=== PATIENT | male | born 1940 | race African-American/Black ===

== ENCOUNTER → 2017-08-23 | Outpatient (CLI) | payer OTHER ==
[~2017-08-23] VITALS: Ht 167.6 cm; Wt 61.2 kg
[~2017-08-23] MED LIST: AMLODIPINE-ATO1 EAC6 PO; ASPIR 8181 MG PO; BYSTOLIC10 MG PO; CYCLOBENZAPRINE5 MG PO; FLOMAX0.4 MG PO; GLUCOPHAGE XR500 MG PO; LOSARTAN-HCTZ1 EAC2 PO; MOBIC15 MG PO; NEURONTIN100 MG PO; NORCO 10-325 T1 EACH PO; SYNTHROID100 MC1 PO; SYNTHROID125 MC1 PO; VIAGRA100 MG PO; VITAMIN B COMP1 EACH PO; VITAMIN B-12500 MCG PO; ZETIA10 MG PO
--- NOTE | ~2017-08-23 | HPC ---
[facility] [place] [address] PAIN MANAGEMENT CONSULTATION Name: BEVERLEY HORNER Room #: [facility] [id number] Admission: 08/23/17 Attend Phys: Uriel Leo MD Discharge: Date of : 42 Report #: [id number] THIS REPORT FOR: //name// CC: Isacc Sanchez MD [facility] Uriel Leo DATE OF SERVICE: 09/13/2017 DATE OF REGISTRATION: 09/13/2017. Followup visit for low back pain with radiculopathy. The patient returns to pain clinic today for further discussion regarding management of his back pain related to grade 1 anterolisthesis. He was seen in consultation 1 month ago. He received an epidural injection with only short term benefit. We have talked about repeating the injection, possibly at a different level. He has an X-Stop type device at L4-L5 and degenerative disk disease noted at several levels with scoliosis. We may consider another injection and I have told him that the use of a transforaminal approach might be more effective. I would consider bilateral transforaminal at the level of his spondylolisthesis if we repeat the injection in the future. For the moment, he would like to consider medication management. I have offered gabapentin 100 mg t.i.d. Side effects reviewed. PQRS reviewed shows history of spondylosis and osteoarthritis of the spine. BMI of 22.4. He remains fit. Blood pressure is elevated and followed by his primary care physician. PHYSICAL EXAMINATION: Blood pressure today is 167/67, heart rate 70, O2 sat 97. Pain intensity is just a 4/10 today. He is not a fall risk. He is not on an opioid agreement nor is he receiving opioids from our clinic. He does not smoke nor drink alcohol. IMPRESSION: Low back pain with radiculopathy. He has a spinal stenosis based upon the X-Stop placement and spondylolisthesis documented by MRI at L4-L5. PLAN: 1. Trial of gabapentin for 1-2 months. 2. Consider return for transforaminal epidural injection at L4-L5 under fluoroscopic guidance. <ELECTRONICALLY SIGNED> By: Uriel Leo MD 10/04/17 1408 1152 1222 Uriel Leo MD /nt
--- NOTE | ~2017-08-23 | HPC ---
[facility] [place] [address] PAIN MANAGEMENT CONSULTATION Name: BEVERLEY HORNER Room #: REG [facility] [id number] Admission: 08/23/17 Attend Phys: Uriel Leo MD Discharge: Date of : 42 Report #: [id number] THIS REPORT FOR: //name// CC: PJ Leo DATE OF SERVICE: 08/23/2017 CHIEF COMPLAINT: Burning pain in the posterior thigh. HISTORY OF PRESENT ILLNESS: The patient is a pleasant 77-year-old whom Dr. Sanchez has asked to see us. He describes a burning pain that radiates down the back of his thigh. It is worse with any sort of tactile pressure. He describes it as a burning sensation. He has had some physical therapy with no relief. He has had no injections. He has not tried gabapentin, Lyrica, or amitriptyline neuropathic pain mediations. Pain today is 4/10 and he described it as continuous. Pain drawing shows it bilaterally down the posterior aspect of each leg. MEDICATIONS: Bystolic, losartan, hydrocodone 10/325 one q. 6 hours, meloxicam 15 mg daily, levothyroxine, Zetia, Viagra as needed, vitamin B12, vitamin B6, aspirin, amlodipine/atorvastatin. He uses only 1 hydrocodone a day currently. He says it does help with his pain. He denies any side effects other than some mild constipation, which is managed. REVIEW OF SYSTEMS: He completes the review of systems. Multiple question file shows only issues associated with frequent urination, nocturia, change in force and his urine stream and sexual difficulties. He denies all other symptoms. Impacted pain score is completed, it is very low 21/70. PAST SURGICAL HISTORY: Back surgery in 11/2014, I believe this was an X-STOP device per x-rays reviewed later in the clinic visit. He has a history of diabetes, treated with metformin, hypertension and coronary artery disease. SOCIAL HISTORY: He is retired. 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 He has been off work for 15 years. He denies use of any tobacco, but drinks alcoholic beverages once a week in a social setting. Substance abuse review shows that he has a history of substance abuse with alcohol for a total of 3, considered low risk for the use of opioid medication. PHYSICAL EXAMINATION: GENERAL: This is a very nice fellow, moves easily from sitting to standing [facility] [address] [place] [address] PAIN MANAGEMENT CONSULTATION Name: BEVERLEY HORNER Room #: REG [facility]ITAL[facility]Yuli#: [id number] Admission: 08/23/17 Attend Phys: Uriel Leo MD Discharge: Date of : 42 Report #: [id number] position, walks with some difficulty and antalgic features. His gait is stiff. HEENT: His blood pressure is 181/75, heart rate is 55. CHEST: Clear to auscultation. CARDIAC: Rhythm was regular. ABDOMEN: Soft. MUSCULOSKELETAL: Examination of spine reveals small scar from previous surgery. Straight leg raising bilaterally reproduces pain in the L5-S1 distribution. Sensation is intact. There is mild generalized weakness in the lower extremities. IMPRESSION: Low back pain with radiculopathy, L5-S1 distribution bilateral. RECOMMENDATIONS: Epidural steroid injection under fluoroscopic guidance. This should be helpful for these radicular symptoms. Further x-ray examination may be of some value. Risks and procedure were explained. He would like to proceed. He was taken to fluoroscopic suite for treatment. He was placed prone, skin prepped with ChloraPrep. Skin anesthetized over the L4-L5 interspace. A 20-gauge Tuohy epidural needle was advanced on the first attempt in the epidural space with loss of resistance technique. There was no blood nor CSF aspirated. 1 mL of Omnipaque injected. Good spread of dye was seen into the epidural space followed by 3 mL of 0.5% lidocaine mixed with 80 mg of triamcinolone. He tolerated the procedure well, was observed for 45 minutes and discharged. Follow up as needed. <ELECTRONICALLY SIGNED> By: Uriel Leo MD 10/04/17 1408 1700 2104 Uriel Leo MD /nt
[2017-08-23 12:45] VITALS: BP 167/82
== END ==
LOC: PAIN 07:38
DX: M54.16 Radiculopathy, lumbar region (principal)

== ENCOUNTER → 2017-09-13 | Outpatient (CLI) | payer OTHER ==
[~2017-09-13] VITALS: Ht 167.6 cm; Wt 63.0 kg
[~2017-09-13] MED LIST changes: -CYCLOBENZAPRINE5 MG PO; -SYNTHROID100 MC1 PO
[2017-09-13 14:55] VITALS: BP 167/76
== END ==
LOC: PAIN 07:25
DX: I10 Essential (primary) hypertension (principal); M54.89 Other dorsalgia; F11.90 Opioid use, unspecified, uncomplicated; Z79.899 Other long term (current) drug therapy

== ENCOUNTER → 2018-01-20 | Outpatient (CLI) | payer OTHER ==
[~2018-01-20] VITALS: Ht 167.6 cm; Wt 62.9 kg
--- NOTE | ~2018-01-20 | HPC ---
[facility] [place] [address] PAIN MANAGEMENT CONSULTATION Name: BEVERLEY HORNER Room #: REG [facility] Ranjeet#: [id number] Admission: 01/20/18 Attend Phys: Uriel Leo MD Discharge: Date of : 42 Report #: [id number] THIS REPORT FOR: //name// CC: Isacc Leo DATE OF SERVICE: 01/20/2018 Followup visit for chronic radiculopathy. The patient returns to pain clinic today in followup. He received an epidural injection above the level of his X-Stop device. He has spinal stenosis at L4-L5, fairly severe in nature. Unfortunately, that epidural provided no relief. I am not sure another epidural would provide relief, but before we proceed with more aggressive treatments including spinal cord stimulation or surgery, I have offered him bilateral transforaminal epidural injections. There is a complete loss of disk space at L4-L5 and marked endplate changes and irregularities. There is severe spinal stenosis there and severe bilateral neuroforaminal stenosis. At L5-S1, the disk space height is reduced, but there appears to be more room for entry with bilateral neuroforaminal narrowing to a lesser degree, although still there is some significant compromise. An injection at L5-S1 would typically spread medicine superiorly on the pedicle and may provide better relief in and around the area where the stenosis is severe at 4-5. He has agreed to proceed with that injection. If he is not doing any better, we will see him back in the pain clinic and I would like to discuss spinal cord stimulation with him at that time. PHYSICAL EXAMINATION: He is a pleasant gentleman. Blood pressure 179/80, heart rate 65, respirations 16. He is able to ambulate without difficulty. He has some restriction in back extension; this may be from the device placed in his spine. Flexion is performed without difficulty. Straight leg raise bilaterally positive following an L4-L5 distribution, L5-S1 also involved. IMPRESSION: Lumbar radiculopathy secondary to severe spinal stenosis at L4-L5 and multilevel foraminal stenosis. RECOMMENDATIONS: Bilateral transforaminal epidural injection L5-S1 under fluoroscopic guidance. PROCEDURE: He was taken to the fluoroscopic suite, placed prone, skin prepped with ChloraPrep. Skin was anesthetized over the L5-S1 neural foramen. I began on the left and needle was gently advanced into the neural foramen. Repositioning was required until I obtained a nice epidurogram as well as medications spreading along the L5 nerve root. This was then followed by 2 mL of 0.5% bupivacaine mixed with 40 mg of triamcinolone. The needle was removed. [address] [address] PAIN MANAGEMENT CONSULTATION Name: BEVERLEY HORNER Room #: REG CLTila Pollack#: [id number] Admission: 01/20/18 Attend Phys: Uriel Leo MD Discharge: Date of : 42 Report #: [id number] The C-arm was then positioned to the right and a mirror image injection at the L5-S1 neural foramen was performed using triplanar fluoroscopic views. He tolerated the procedure well and was taken to recovery room for observation for 45 minutes. His pain score was zero at discharge. Followup visit is planned in 1 month. By: 1700 2123 Uriel Leo MD /nt
[2018-01-20 10:36] VITALS: BP 137/65
== END | disposition home or self-care (01) ==
LOC: PAIN 06:16
DX: M48.061 Spinal stenosis, lumbar region without neurogenic claudication (principal); M54.16 Radiculopathy, lumbar region; G89.29 Other chronic pain; Z98.890 Other specified postprocedural states; Z87.891 Personal history of nicotine dependence; Z79.82 Long term (current) use of aspirin; Z79.899 Other long term (current) drug therapy

== ENCOUNTER 2018-04-30 22:04 | Inpatient (IN) | payer OTHER ==
[~2018-04-30] VITALS: Ht 177.8 cm; Wt 63.5 kg
--- NOTE | ~2018-04-30 | EKG ---
[address] [address] ELECTROCARDIOGRAM REPORT Name: BEVERLEY HORNER Room #: 453-P ADM IN M.R.#: [id number] Admission: 05/01/18 Attend Phys: Jayson Fontanez Discharge: Date of : 42 Report #: [id number] THIS REPORT FOR: //name// [facility] ED Test Date: 2018-04-30 Test Time: 23:26:47 Pat Name: BEVERLEY HORNER Department: Room: [facility] Gender: M Master Glazier: eagle : 1940 Requested By: Jaime Pena Order Number: [id number] MD: Doug Raines Measurements Intervals [place] Rate: 69 P: 83 DC: 198 QRS: 80 QRSD: 84 T: 89 QT: 388 QTc: 416 Interpretive Statements Sinus rhythm Early repolarization Compared to ECG 09/21/2001 21:33:30 No significant change Electronically Signed On 05-01-2018 10:23:34 RESEARCH ATTORNEY by Doug Raines [email or web address] <ELECTRONICALLY SIGNED> By: Doug Raines MD 05/01/18 1023 2326 2326 Doug Raines MD /JUANA
[2018-04-30 22:10] VITALS: BP 128/67
[2018-04-30 22:51] LABS: URINE BILIRUBIN NEGATIVE (Negative); URINE BLOOD NEGATIVE (Negative); URINE CLARITY CLEAR; URINE COLOR YELLOW; URINE GLUCOSE-RANDOM* NEGATIVE (Negative); URINE KETONES TRACE (Negative); URINE LEUKOCYTES-REFLEX NEGATIVE (Negative); URINE NITRITE-REFLEX NEGATIVE (Negative); URINE PROTEIN (DIPSTICK) NEGATIVE (Negative); URINE UROBILINOGEN 0.2 E.U./dl (0.2-1.0)
[2018-04-30 23:18] LABS: ABSOLUTE NEUTROPHILS 6.1 thou/uL (1.4-8.2); BASOPHILS 1.2 % (0.0-2.0); HEMATOCRIT 45.1 % (42.0-52.0); HEMOGLOBIN 15.6 gm/dL (14.0-18.0); LYMPHOCYTES 18.9 % (24.0-44.0); MCH 32.2 pg (26.0-34.0); MCHC 34.5 g/dL (28.0-37.0); MCV 93.3 fL (80.0-100.0); MONOCYTES 10.7 % (1.0-8.0); PLATELET COUNT 267 thou/uL (150-400); POLYS 66.2 % (36.0-66.0); RBC 4.83 mil/uL (4.50-6.00); RDW 14.8 % (10.5-14.5); WBC 9.2 thou/uL (4.0-11.0)
[2018-04-30 23:27] LABS: ANION GAP 9 mmol/L (7-16); BUN 28 mg/dL (7-18); CHLORIDE 103 mmol/L (98-107); CO2 29 mmol/L (21-32); CREATININE 1.3 mg/dL (0.7-1.3); GLUCOSE 96 mg/dL (74-106); POTASSIUM 4.3 mmol/L (3.5-5.1); SODIUM 141 mmol/L (136-145)
[2018-04-30 23:36] LABS: TROPONIN-I <0.06 ng/mL (<0.06)
[2018-05-01 01:11] VITALS: BP 136/73
[2018-05-01] MEDS ORDERED: SYNTHROID100 MC1 PO (01:32)
[2018-05-01] MEDS ORDERED: FLOMAX0.4 MG PO (01:33)
[2018-05-01 01:46] VITALS: BP 132/69
[2018-05-01 03:17] VITALS: BP 133/49
[2018-05-01 07:20] VITALS: BP 134/69
[2018-05-01 15:34] VITALS: BP 119/58
[2018-05-01 20:21] VITALS: BP 120/59
[2018-05-02 00:05] LABS: GLYCOHEMOGLOBIN (HGB A1C) 6.1 % (4.8-5.6)
[2018-05-02 04:35] VITALS: BP 126/67
[2018-05-02 08:00] VITALS: BP 127/61
[2018-05-02 15:00] VITALS: BP 130/66
[2018-05-02 19:58] VITALS: BP 114/52
[2018-05-03 04:38] VITALS: BP 115/44
[2018-05-03 06:30] LABS: MAGNESIUM 2.4 mg/dL (1.8-2.4); PHOSPHORUS 3.7 mg/dL (2.5-4.9)
[2018-05-03 07:30] LABS: FOLIC ACID 4.8 ng/mL (8.6-58.9)
[2018-05-03 07:38] VITALS: BP 115/44
[2018-05-03 08:00] VITALS: BP 114/55
[2018-05-03 14:00] VITALS: BP 132/58
[2018-05-03 19:50] VITALS: BP 120/63
[2018-05-04 04:06] VITALS: BP 116/60
[2018-05-04 08:53] VITALS: BP 132/59
[2018-05-04] MEDS ORDERED: CYCLOBENZAPRINE5 MG PO (09:59)
[2018-05-04 16:01] VITALS: BP 120/61
[2018-05-04 19:35] VITALS: BP 122/50
[2018-05-05 04:10] VITALS: BP 131/67
[2018-05-05 07:59] VITALS: BP 125/56
[2018-05-05 08:25] VITALS: BP 125/56
== END 2018-05-05 15:24 | DRG 552 ==
LOC: ER 22:04 → 4W 05-01 01:24 → EROBS 05-01 01:24 → 4W 05-01 01:32
PROVIDERS: Emergency Medicine; Nurse Practitioner Acute Care; Nurse Practitioner Family
DX: M47.26 Other spondylosis with radiculopathy, lumbar region (principal); M48.061 Spinal stenosis, lumbar region without neurogenic claudication; I10 Essential (primary) hypertension; E03.9 Hypothyroidism, unspecified; E11.9 Type 2 diabetes mellitus without complications; J44.9 Chronic obstructive pulmonary disease, unspecified; M19.90 Unspecified osteoarthritis, unspecified site; R29.6 Repeated falls; E53.8 Deficiency of other specified B group vitamins; R63.4 Abnormal weight loss; E78.00 Pure hypercholesterolemia, unspecified; N40.1 Benign prostatic hyperplasia with lower urinary tract symptoms; Z87.891 Personal history of nicotine dependence; Z79.82 Long term (current) use of aspirin; Z79.899 Other long term (current) drug therapy; Z68.20 Body mass index [BMI] 20.0-20.9, adult; W18.39XA Other fall on same level, initial encounter; Y93.89 Activity, other specified; Y92.89 Other specified places as the place of occurrence of the external cause; Y99.8 Other external cause status
CPT/HCPCS: 10040

== ENCOUNTER 2018-05-09 02:26 | Inpatient (IN) | payer OTHER ==
[~2018-05-09] VITALS: Ht 167.6 cm; Wt 68.3 kg
[2018-05-09] VITALS (36 sets, daily range): BP systolic 94–146; BP diastolic 16–76
--- NOTE | ~2018-05-09 | EKG ---
[address] [place] [address] ELECTROCARDIOGRAM REPORT Name: NEVILLEBEVERLEY DICK Room #: 238-P ADM IN M.R.#: [id number] Admission: 05/09/18 Attend Phys: Nallely Morris MD Discharge: Date of : 42 Report #: [id number] THIS REPORT FOR: //name// [facility] ED Test Date: 2018-05-09 Test Time: 03:29:51 Pat Name: BEVERLEY HORNER Department: Room: 238 Gender: M Clinical Trials Specialist: meaghan : 1940 Requested By: Yeimy Winters Order Number: [id number] MD: Donte Patel Measurements Intervals [place] Rate: 108 P: 81 [place]: 164 QRS: 39 QRSD: 85 T: 90 QT: 320 QTc: 429 Interpretive Statements Sinus tachycardia Borderline low voltage, extremity leads Probable left ventricular hypertrophy Nonspecific T abnormalities, lateral leads Compared to ECG 04/30/2018 23:26:47 No significant change was found Electronically Signed On 05-09-2018 8:12:25 REPAIR SUPERVISOR by Donte Patel [email or web address] <ELECTRONICALLY SIGNED> By: Donte Patel MD, [facility] 05/09/18811 Donte Patel MD, [facility] /EPI
--- NOTE | ~2018-05-09 | P ---
[facility] [place] [address] PROCEDURE REPORT Name: BEVERLEY HORNER Room #: 238-P [facility] IN M.R.#: [id number] Admission: 05/09/18 Attend Phys: Nallely Morris MD Discharge: Date of : 42 Report #: [id number] THIS REPORT FOR: //name// CC: Isacc Morris DATE OF SERVICE: 05/14/2018 BRIEF HISTORY: The patient is a 77-year-old male who presented to [facility] with shortness of breath and was found to have bilateral pulmonary emboli, was placed on heparin drip. He now has evidence of upper gastrointestinal bleeding. PREOPERATIVE DIAGNOSIS: Upper gastrointestinal bleeding on heparin drip. POSTOPERATIVE DIAGNOSES: Circumferential mass lesion of the GE junction consistent with esophageal cancer with partial esophageal obstruction. MEDICATIONS: Intubation and general anesthesia. SPECIMEN: Biopsies of esophageal mass. ESTIMATED BLOOD LOSS: 3 mL related to procedure. PROCEDURE: EGD with biopsy. FINDINGS: Prior to intubation and sedation, procedure of endoscopy was discussed with the patient as well as family potential risks and its complications were discussed. They indicate they understand and desire that we proceed. DESCRIPTION OF PROCEDURE: With the patient in supine position, the Olympus video endoscope was inserted in the cervical esophagus under direct vision without difficulty. There was a small amount of blood in the mid esophagus. We advanced the scope, there was a mass lesion seen at the GE junction. It was circumferential. It was friable. There was not spurting or profuse bleeding, but there was diffuse friability. Very carefully, I was able to advance the scope through the strictured segment into the stomach. Stomach was examined on end view as well as retroflexed views. Not surprisingly, there was a pool of red blood in the cardia of the stomach seen in retroflexion. There were some limitations due to blood and clot, but I do not see any obvious mass lesions within the gastric lumen. Examination of distal stomach revealed it to be coated with blood and without ulcers. The pylorus, duodenal bulb and postbulbar sweep were inspected and noted to be unremarkable. At that point, the scope was slowly withdrawn and careful circumferential views were obtained. We did obtain [facility] [address] [place] [address] PROCEDURE REPORT Name: BEVERLEY HORNER Dara Room #: 238-P [facility] IN ..#: [id number] Admission: 05/09/18 Attend Phys: Nallely Morris MD Discharge: Date of : 42 Report #: [id number] biopsies of the mass lesion. Scope was withdrawn. A 16-Latvian nasogastric tube was reinserted. This was observed endoscopically and it passed easily through the strictured segment into the stomach. Scope was withdrawn. The patient tolerated the procedure well. DISPOSITION: Discussed with Dr. Jenkins. Difficult problem the patient with bilateral pulmonary emboli and oozing from an esophageal tumor. This is likely a cancer. We will resume the heparin drip this evening. We will await biopsies. It is noted that on the CT angio, there was thickening in the esophagus, but no other abnormalities to suggest metastatic disease was identified. <ELECTRONICALLY SIGNED> By: Marcell Rabago MD 05/15/18 1316 164 1928 Marcell Rabago MD /nt
--- NOTE | ~2018-05-09 | 2DMMODE ---
[facility] [place] [address] 2 D/M-MODE ECHOCARDIOGRAM Name: BEVERLEY OHRNER Dara Room #: 241-P [facility] IN ..#: [id number] Admission: 05/09/18 Attend Phys: Nallely Morris MD Discharge: Date of : 42 Date of Service: 05/22/18 1344 Report #: [id number] THIS REPORT FOR: //name// APPROVED REPORT Study performed: 05/22/2018 10:36:01 EXAM: Comprehensive 2D, Doppler, and color-flow Echocardiogram Patient Location: ICU Room #: 241 Status: routine BSA: 1.80 HR: 105 bpm BP: 96/45 mmHg Other Information Study Quality: Adequate Indications Non STEMI 2D Dimensions IVSd: 10.68 (7-11mm) LVDd: 45.37 mm PWd: 11.31 (7-11mm) LVDs: 31.74 (25-40mm) Aortic Root: 29.64 mm IVC: 1.90 mm Tricuspid Valve TR Peak Aguilar.: 2.27 m/s RAP Estimate: 3.00 mmHg TR Peak Gr.: 20.57 mmHg PA Pressure: 24.00 mmHg Left Ventricle The left ventricle is normal size. Borderline concentric left ventricular hypertrophy. The left ventricular systolic function is normal. The left ventricular ejection fraction is within the normal range. LVEF is 50-55%. Right Ventricle The right ventricle is normal size. The right ventricular systolic function is normal. Atria The left atrium size is normal. The right atrium size is [facility] [address] [place] [address] 2 D/M-MODE ECHOCARDIOGRAM Name: NEVILLEBEVERLEY DICK Room #: 241-P [facility] IN ..#: [id number] Admission: 05/09/18 Attend Phys: Nallely Morris MD Discharge: Date of : 42 Date of Service: 05/22/18 1344 Report #: [id number] normal. Pericardium There is a small pericardial effusion. <Conclusion> The left ventricle is normal size. LVEF is 50-55%. The right ventricle is normal size. The right ventricular systolic function is normal. There is a small pericardial effusion. <ELECTRONICALLY SIGNED> By: Rony Singh MD 05/22/18 1344 1344 43 Rony Singh MD /INF
--- NOTE | ~2018-05-09 | 2DMMODE ---
[facility] [place] [address] 2 D/M-MODE ECHOCARDIOGRAM Name: BEVERLEY HORNER Room #: 238-P [facility] IN ..#: [id number] Admission: 05/09/18 Attend Phys: Nallely Morris MD Discharge: Date of : 44 Date of Service: 05/09/18 1418 Report #: [id number] THIS REPORT FOR: //name// APPROVED REPORT Study performed: 05/09/2018 13:21:26 EXAM: Comprehensive 2D, Doppler, and color-flow Echocardiogram Patient Location: ICU Room #: 238 Status: routine BSA: 1.75 HR: 87 bpm BP: 94/37 mmHg Rhythm: NSR Other Information Study Quality: Fair Indications Pulmonary Embolism Diabetes Dyspnea Hypertension/HDD 2D Dimensions IVSd: 11.43 (7-11mm) LVOT Diam: 21.49 (18-24mm) LVDd: 41.00 mm PWd: 10.55 (7-11mm) Ascending Ao: 30.05 (22-36mm) LVDs: 28.14 (25-40mm) Aortic Root: 24.09 mm IVC: 17.00 mm Aortic Valve AoV Peak Aguilar.: 1.17 m/s AO Peak Gr.: 5.52 mmHg LVOT Max P.83 mmHg LVOT Max V: 0.98 m/s ELENO Vmax: 3.02 cm2 Mitral Valve E/A Ratio: 1.1 MV Decel. Time: 169.22 ms MV E Max Aguilar.: 0.61 m/s MV A Aguilar.: 0.58 m/s MV PHT: 49.08 ms IVRT: 96.89 ms [facility] [address] [place] [address] 2 D/M-MODE ECHOCARDIOGRAM Name: BEVERLEY HORNER Dara Room #: 238-P [facility]#: [id number] Admission: 05/09/18 Attend Phys: Nallely Morris MD Discharge: Date of : 42 Date of Service: 05/09/18 1418 Report #: [id number] Pulmonary Valve PV Peak Aguilar.: 1.03 m/s PV Peak Gr.: 4.27 mmHg Pulmonary Vein P Vein S: 0.57 m/s P Vein A: 0.31 m/s P Vein D: 0.37 m/s P Vein A Dur.: 92.3 msec P Vein S/D Ratio: 1.54 Tricuspid Valve TR Peak Aguilar.: 2.83 m/s TR Peak Gr.: 32.14 mmHg PA Pressure: 37.00 mmHg Left Ventricle The left ventricle is normal size. There is normal left ventricular wall thickness. Left ventricular systolic function is hyperdynamic. LVEF is >70%. Grade I - abnormal relaxation pattern. Right Ventricle The right ventricle is normal size. The right ventricular systolic function is normal. Atria The left atrium size is normal. The right atrium size is normal. Aortic Valve The aortic valve is normal in structure. No aortic regurgitation is present. There is no aortic valvular stenosis. Mitral Valve The mitral valve is normal in structure. There is no mitral valve regurgitation noted. No evidence of mitral valve stenosis. Tricuspid Valve The tricuspid valve is normal in structure. There is trace tricuspid regurgitation. Estimated PAP 37 mmHg. There is mild pulmonary hypertension. Pulmonic Valve The pulmonary valve is normal in structure. Trace pulmonic regurgitation. Great Vessels The aortic root is normal in size. IVC is normal in size and [facility] [address] [place] [address] 2 D/M-MODE ECHOCARDIOGRAM Name: EBVERLEY HORNER Dara Room #: 238-P [facility] IN ..#: [id number] Admission: 05/09/18 Attend Phys: Nallely Morris MD Discharge: Date of : 42 Date of Service: 05/09/18 1418 Report #: [id number] collapses >50% with inspiration. Pericardium There is no pericardial effusion. <Conclusion> The left ventricle is normal size. There is normal left ventricular wall thickness. Left ventricular systolic function is hyperdynamic. Grade I - abnormal relaxation pattern. The right ventricle is normal size. The left atrium size is normal. The aortic valve is normal in structure. There is no mitral valve regurgitation noted. There is trace tricuspid regurgitation. Estimated PAP 37 mmHg. <ELECTRONICALLY SIGNED> By: Doug Raines MD 05/09/18 1418 17 17 Doug Raines MD /INF
--- NOTE | ~2018-05-09 | O ---
[facility] [place] [address] [place] [address] OPERATIVE REPORT Name: BEVERLEY HORNER Room #: 241-P [facility] IN M.R.#: [id number] Admission: 05/09/18 Attend Phys: Nallely Morris MD Discharge: Date of : 42 Report #: [id number] THIS REPORT FOR: //name// CC: Isacc Morris DATE OF SERVICE: 05/31/2018 SURGEON: Michael Melgar MD [employer] OPERATOR: Pankaj Nelson DO PREOPERATIVE DIAGNOSES: 1. Respiratory failure with inability to wean from the mechanical ventilator. 2. Bilateral pulmonary emboli. 3. Retroperitoneal hematoma. POSTOPERATIVE DIAGNOSES: 1. Respiratory failure with inability to wean from the mechanical ventilator. 2. Bilateral pulmonary emboli. 3. Retroperitoneal hematoma. PROCEDURE: Tracheostomy (size 8 Shiley cuffed nonfenestrated). ANESTHESIA: General endotracheal anesthesia and local anesthetic. ESTIMATED BLOOD LOSS: 5 mL. SPECIMEN: None. COMPLICATIONS: None appreciated. INDICATIONS FOR PROCEDURE: This is a 77-year-old male patient who was seen in the [place] ER with shortness of air, nausea, vomiting, constipation. CT of the chest, abdomen and pelvis revealed bilateral pulmonary emboli. The patient developed respiratory failure with anticoagulation, developed retroperitoneal hematoma as well as a GI bleed. His anticoagulation was held after an IVC filter was placed. The patient has required mechanical ventilation for over 10 days and has been unable to be weaned. He presents now for tracheostomy. DESCRIPTION OF PROCEDURE IN DETAIL: After the risks, benefits, and expectations of the operation were discussed in detail with the patient and his , informed consent was obtained. The patient was identified in the intensive Care Unit. He was then taken to the Operating Room and he was placed in the supine position. SCDs were placed on the patient's bilateral lower extremities and [facility] [address] [place] [address] OPERATIVE REPORT Name: BEVERLEY HORNER Room #: 241-P [facility] IN [facility]#: [id number] Admission: 05/09/18 Attend Phys: Nallely Morris MD Discharge: Date of : 42 Report #: [id number] pneumatic compression was initiated. The patient was then given general anesthesia through his already existing endotracheal tube. His neck was prepped and draped in the standard sterile fashion. A time-out was performed to identify the correct patient and procedure. Local anesthetic was infiltrated into the skin and subcutaneous tissue in the lower neck one fingerbreadth above the sternal notch. A small transverse incision was made with a #15 blade scalpel. Dissection was carried through the subcutaneous tissue down to and through the platysma muscle. The strap muscles were then divided in the midline. Dissection was carried down to the trachea. The cricothyroid membrane was palpable and dissection was then carried down to the second tracheal ring. After appropriate retraction and ensuring hemostasis with electrocautery, the size 8 Shiley-cuffed nonfenestrated tracheostomy was chosen. The cuff was then tested on the backtable and the tracheostomy then lubricated. The second tracheal ring was scored both above and below the ring with electrocautery. The FiO2 has been decreased down to 30%. The cuff was then deflated and the trachea was incised above and below the second tracheal ring with a #11 blade scalpel. The second tracheal ring was then divided anteriorly and the anterior section of the tracheal ring was excised. Tracheostomy head charrer was then placed. The endotracheal tube was slowly withdrawn above the tracheotomy. The tracheostomy tube was then placed within the trachea. The obturator was removed and the inner cannula was placed. The cuff was inflated. The circuit was then connected to the tracheostomy and end tidal CO2 was obtained. There was no evidence for cuff leak. Surgicel was placed around the tracheostomy. The wings of the tracheostomy were then secured to the skin with interrupted 2-0 nylon sutures on the inferior aspect of each wing. The foam trach strap was then connected. The patient tolerated the procedure well. He was returned to the Intensive Care Unit in stable condition with no apparent intraoperative complications. <ELECTRONICALLY SIGNED> By: Michael Melgar MD, FACS 05/31/18 1219 1109 1153 Michael Melgar MD, FACS /nt
--- NOTE | ~2018-05-09 | EKG ---
[address] [address] ELECTROCARDIOGRAM REPORT Name: BEVERLEY HORNER Room #: 241-P ADM IN M.R.#: [id number] Admission: 05/09/18 Attend Phys: Nallely Morris MD Discharge: Date of : 42 Report #: [id number] THIS REPORT FOR: //name// 

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
--- NOTE | ~2018-05-09 | PATH ---
[facility] [address] [address] PATHOLOGY RPT PROCEDURE Name: GRAEME HORNER Dara Room #: 238-P ADM IN M.R.#: [id number] Admission: 05/09/18 Date of : 42 Discharge: Report #: [id number] Path Case #: [id number] [facility] Accession Number: [id number] . 01 Material submitted: . BX OF ESOPHAGEAL MASS . 01 Clinician provided ICD-10: D64.9 K92.2 . 01 Clinical history: . Pre-op diagnosis: Anemia, GI bleed Post-op diagnosis: Esophageal mass . 02 Diagnosis: Tissue designated as "esophageal mass", endoscopic biopsy: - Specimen entirely comprised of fibrinopurulent material and fragments with degeneration. - Rare detached glandular epithelial cells present with no evidence of intestinal metaplasia or dysplasia. - Intact mucosal fragments not present. (IUV:eldon; 05/17/2018) MBR/05/17/2018 . 02 Comment: Examination shows fragments entirely comprised of fibrinopurulent material, marked acute inflammation, as well as fibrinoid degeneration, compatible with an exudate. Intact epithelial or mucosal fragments are not present within this sample. Detached glandular epithelial cells are identified and show no atypical or malignant features. Due to the lack of intact mucosa, no additional stains are performed. History of "esophageal mass" is noted. Please correlate clinically. (IUV:manager of creative services; 05/17/2018) . 02 Electronically signed: . Fabiola Ramirez MD, Pathologist NPI- [id number] . 01 Gross description: . The specimen is received in formalin, labeled "Graeme Horner, biopsy of esophageal mass". Received are four segments of light brown soft tissue ranging in size from 0.3 to 0.5 cm in maximum dimensions. The specimen is submitted entirely in cassette A1. (CAA; 05/16/2018) QAC/QAC . [address] [place] [address] PATHOLOGY RPT PROCEDURE Name: GRAEME HORNER Dara Room #: 238-P [facility] IN [facility]#: [id number] Admission: 05/09/18 Date of : 42 Discharge: Report #: [id number] Path Case #: [id number] Pathologist provided ICD-10: K22.9, D64.9, K92.2 . 02 CPT . 669131 Specimen Comment: A courtesy copy of this report has been sent to Specimen Comment: [phone], , . Specimen Comment: Report sent to ,DR ALCALA / DR JERONIMO Specimen Comment: A duplicate report has been generated due to demographic updates. Performed at: [address], [place] [id number] MD Denilson León MD Phone: [phone] Performed at: [address] [id number] MD Fabiola Ramirez MD Phone: [phone]
--- NOTE | ~2018-05-09 | HC ---
[facility] [place] [address] [place] [address] CONSULTATION Name: BEVERLEY HORNER Dara Room #: 241-P [facility] IN M.R.#: [id number] Admission: 05/09/18 Attend Phys: Nallely Morris MD Discharge: Date of : 42 Report #: [id number] THIS REPORT FOR: //name// CC: Isacc Morris PATIENT ROOM: 238 HISTORY OF PRESENT ILLNESS: This 77-year-old black male was readmitted through the Emergency Room to [facility] with complaints of nausea, vomiting, constipation and shortness of breath from [facility] where he had been recently transferred after an earlier hospitalization. A CT scan showed evidence of pulmonary embolism and he was placed on anticoagulation. The CT also showed thickening of the distal esophagus. He has now undergone EGD showing a mass in the distal esophagus with a biopsy performed and the results pending at the time of today's consultation. He currently is on a ventilator and is sedated, but his was present during today's visit/exam. She states he has had evidence of increasing heartburn and indigestion. He had not had a prior EGD other than the recent study. PAST MEDICAL HISTORY: Significant for chronic obstructive lung disease along with diabetes and prior lumbar radiculopathy. ALLERGIES: None known. MEDICATIONS: As in the MFR. REVIEW OF SYSTEMS: Negative for any suspicious lymphadenopathy. He denies sweats, chills, fevers or weight loss prior to his recent hospitalization. SOCIAL HISTORY: Nondrinker, nonsmoker. FAMILY HISTORY: Not contributory. PHYSICAL EXAMINATION: GENERAL: Shows a sedated black male. He is intubated. CHEST: Clear. CARDIOVASCULAR: Normal S1, S2. ABDOMEN: Shows no palpable masses. EXTREMITIES: No clubbing, cyanosis, edema. NEUROLOGIC: Sedated. SKIN: Normal turgor. LYMPHATICS: No palpable supraclavicular or axillary lymphadenopathy. LABORATORY DATA: Have been reviewed. [facility] [address] [place] [address] CONSULTATION Name: BEVERLEY HORNER Room #: 241-P [facility]#: [id number] Admission: 05/09/18 Attend Phys: Nallely Morris MD Discharge: Date of : 42 Report #: [id number] ASSESSMENT: Presumed esophageal cancer based on CT and EGD with biopsy results pending. PLAN: I reviewed and discussed with the patient's that we are awaiting results of his biopsy. If this confirms cancer, he needs further staging, which would include a PET scan as well as endoscopic ultrasound and possible lymph node sampling. Our usual approach to localized distal esophageal cancers would be neoadjuvant radiation and chemotherapy and this has been discussed with her as well. Obviously, he is currently too ill to undertake anything at this time. Full and further recommendations will be forthcoming. Thanks for asking us to see him in consultation and being allowed to participate in his care. <ELECTRONICALLY SIGNED> By: Tayler Davey MD 06/03/18 1210 1044 1159 MD sean Patel
--- NOTE | ~2018-05-09 | HC ---
[facility] [place] [address] [place] [address] CONSULTATION Name: BEVERLEY HORNER Room #: 241-P [facility] IN M.R.#: [id number] Admission: 05/09/18 Attend Phys: Nallely Morris MD Discharge: Date of : 42 Report #: [id number] THIS REPORT FOR: //name// CC: Isacc Morris REASON FOR CONSULTATION: Acute kidney injury and hyperkalemia. REASON FOR PRESENTATION: Shortness of breath. HISTORY OF PRESENT ILLNESS: This is a 77-year-old who was hospitalized initially on 05/01/2018 with difficulty urinating. He had issues with urinary retention and repeated falls on his presentation. He was discharged on 05/04/2018 to a care home facility. He re-presented on 05/09/2018 with shortness of breath. CT chest revealed that the patient have pulmonary embolism and the patient was admitted for further evaluation and management. Hematology, GI, Cardiology and ID have been following the patient for numerous issues, including and not limited to nonsustained ventricular tachycardia. The patient was found to have an esophageal mass with esophageal cancer as a potential differential diagnosis on his EGD. Apparently, the patient has a creatinine of 1.0 and this has trended up in the last few days to a peak of 2.2, associated with hyperkalemia. He did receive a CT with contrast on 05/19/2018 and this was grossly abnormal with what seems to be retroperitoneal bleed. Because of the worsening of his acute kidney injury, I am being consulted to manage his renal-related issues. Apparently, as I have stated, the patient had hypotension yesterday and he did receive CT with the contrast. Blood pressure was down in the 70s/30s all through yesterday. His urine output was in the 1000 liter. Because of the drop in his hemoglobin, he was transferred to the Intensive Care Unit. PAST MEDICAL HISTORY: Extensive, numerous and includes the followin. Esophageal cancer. 2. Coronary artery disease. 3. Hypertension. 4. Pulmonary embolism. 5. Hyperlipidemia. 6. Spinal stenosis. 7. Urinary retention. 8. Ileus. 9. Ventricular tachycardia. 10. Renal artery stenosis. PAST SURGICAL HISTORY: 1. Back surgery. 2. Recent EGD. FAMILY HISTORY: Hypertension. [address] [address] CONSULTATION Name: BEVERLEY HORNER Room #: 241-P [facility] IN ..#: [id number] Admission: 05/09/18 Attend Phys: Nallely Morris MD Discharge: Date of : 42 Report #: [id number] SOCIAL HISTORY: No drug or alcohol abuse. REVIEW OF SYSTEMS: GENERAL: No fever or chills. CARDIOVASCULAR: No chest pain; however, he did have shortness of breath. PULMONARY: Significant for shortness of breath. GASTROINTESTINAL: As per the history of present illness. GENITOURINARY: He has a Vilchis catheter. MUSCULOSKELETAL: As per the history of present illness. HOME MEDICATIONS: 1. Flomax. 2. Bystolic. 3. Meloxicam. 4. Gabapentin. 5. Metformin. 6. Levothyroxine. PHYSICAL EXAMINATION: GENERAL: Alert, oriented. VITAL SIGNS: Blood pressure is 98/53. HEAD AND NECK: No jugular venous distention. CHEST: Decreased air entry bilaterally. CARDIOVASCULAR: No rub detected. ABDOMEN: Soft, nontender. LOWER EXTREMITIES: No edema. LABORATORY DATA: Laboratory values from today revealed the following: White blood cell count 27,000. Sodium 148, potassium 5.9, chloride 113, carbon dioxide 25, BUN 49 and creatinine 2.2. As I have stated, he did have a normal kidney function with episodes of acute kidney injury in the past. ASSESSMENT, IMPRESSION AND PLAN: 1. Acute kidney injury. 2. Hypernatremia. 3. Hyperkalemia. 4. Retroperitoneal bleed. 5. Nonsustained ventricular tachycardia. 6. Bilateral pulmonary emboli. 7. The patient's acute kidney injury is well explained by his hypertension and the contrast that he received. This is also complicated by his retroperitoneal bleed that caused him major issues with his potassium being up-shot to the systemic circulation. 8. I will send appropriate workup for the patient. 9. Hemodynamic support. [address] [address] CONSULTATION Name: BEVERLEY HORNER Room #: 241-P [facility] IN M.R.#: [id number] Admission: 05/09/18 Attend Phys: Nallely Morris MD Discharge: Date of : 42 Report #: [id number] 10. We will reformulate his IV fluid. 11. We will treat his hyperkalemia. 12. Holding his anticoagulation for now. 13. Defer the management of this anticoagulation, PE issue and retroperitoneal bleed to the Hematology service. 14. We will continue to follow along. <ELECTRONICALLY SIGNED> By: Monica Mathews MD 05/26/18 1009 0905 0952 Monica Mathews MD /nt
--- NOTE | ~2018-05-09 | EKG ---
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: : 1940 Requested By: Nallely Morris Order Number: [id number] MD: Donte Patel Measurements Intervals [place] Rate: 98 P: 79 [place]: 132 QRS: 64 QRSD: 78 T: 89 QT: 345 QTc: 441 Interpretive Statements Sinus rhythm Minimal nonspecific ST segment abnormality Compared to ECG 05/09/2018 03:29:51 No significant change was found Electronically Signed On 05-20-2018 9:40:49 LIFE MANAGEMENT TEACHER by Donte Patel [email or web address] <ELECTRONICALLY SIGNED> By: Donte Patel MD, [facility] 05/20/18 0940 1150 1150 Donte Patel MD, FACC /EPI
--- NOTE | ~2018-05-09 | EKG ---
[address] [address] ELECTROCARDIOGRAM REPORT Name: BEVERLEY HORNER Room #: 241-P ADM IN M.R.#: [id number] Admission: 05/09/18 Attend Phys: Nallely Morris MD Discharge: Date of : 44 Report #: [id number] THIS REPORT FOR: //name// [facility] Test Date: 2018-05-21 Test Time: 08:26:42 Pat Name: BEVERLEY HORNER Department: Room: 241 P Gender: M Car Bracer: ALEXIA : 1940 Requested By: Donte Patel Order Number: [id number] MD: Rony Singh Measurements Intervals [place] Rate: 88 P: 74 TX: 144 QRS: 57 QRSD: 91 T: 85 QT: 363 QTc: 440 Interpretive Statements Sinus rhythm Low voltage Baseline wander in lead(s) V5 Compared to ECG 05/19/2018 11:50:30 Low QRS voltage now present Electronically Signed On 05-22-2018 23:22:32 IRONWORKER by Rony Singh [email or web address] <ELECTRONICALLY SIGNED> By: Rony Singh MD 05/22/182321 5 5 Rony Singh MD /EPI
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
[~2018-05-09 02:26] MED LIST changes: +CYCLOBENZAPRINE5 MG PO; +SYNTHROID100 MC1 PO
[2018-05-09] MEDS ORDERED: MILK OF MA2400 MG/10 PO (02:45)
[2018-05-09] MEDS ORDERED: MIRALAX17 GM PO (02:46)
[2018-05-09] MEDS ORDERED: COLACE 100 MG100 MG PO (02:47)
[2018-05-09 02:48] LABS: BE(vivo) 1.9 mmol/L (-2 to +3); HCO3 27.2 mmol/L (22.0-26.0)
[2018-05-09 03:19] LABS: ABSOLUTE NEUTROPHILS 9.9 thou/uL (1.4-8.2); BASOPHILS 0.5 % (0.0-2.0); HEMATOCRIT 42.4 % (42.0-52.0); MCHC 33.1 g/dL (28.0-37.0); MCV 93.6 fL (80.0-100.0); MONOCYTES 9.9 % (1.0-8.0); PLATELET COUNT 266 thou/uL (150-400); POLYS 82.6 % (36.0-66.0); RBC 4.53 mil/uL (4.50-6.00); RDW 14.7 % (10.5-14.5)
[2018-05-09 03:21] LABS: ANION GAP 9 mmol/L (7-16); BUN 71 mg/dL (7-18); CALCIUM 9.3 mg/dL (8.5-10.1); CHLORIDE 98 mmol/L (98-107); CO2 29 mmol/L (21-32); GLUCOSE 163 mg/dL (74-106); SODIUM 136 mmol/L (136-145)
[2018-05-09 03:28] LABS: POTASSIUM 6.7 mmol/L (3.5-5.1)
[2018-05-09 03:29] LABS: APTT 23.9 Seconds (24.5-32.8); PROTIME 10.4 Seconds (9.3-11.4)
[2018-05-09 03:30] LABS: ALBUMIN 3.3 g/dL (3.4-5.0); LIPASE 63 U/L (73-393); SGOT 29 U/L (15-37); SGPT 24 U/L (30-65); TOTAL BILIRUBIN 0.9 mg/dL (<0.1-1.0); TOTAL PROTEIN 7.4 g/dL (6.4-8.2); TROPONIN-I <0.06 ng/mL (<0.06)
[2018-05-09 04:01] LABS: BE(vivo) 0.1 mmol/L (-2 to +3); PCO2 36.8 mmHg (35.0-45.0); PO2 67.1 mmHg (80.0-100.0); pH 7.432 (7.360-7.450)
[2018-05-09 04:54] LABS: URINE BILIRUBIN NEGATIVE (Negative); URINE BLOOD NEGATIVE (Negative); URINE CLARITY CLEAR; URINE COLOR YELLOW; URINE GLUCOSE-RANDOM* NEGATIVE (Negative); URINE KETONES NEGATIVE (Negative); URINE LEUKOCYTES-REFLEX NEGATIVE (Negative); URINE NITRITE-REFLEX NEGATIVE (Negative); URINE PROTEIN (DIPSTICK) NEGATIVE (Negative); URINE SPECIFIC GRAVITY 1.025 (1.005-1.035); URINE UROBILINOGEN 0.2 E.U./dl (0.2-1.0)
[2018-05-09 07:55] LABS: CALCIUM 9.3 mg/dL (8.5-10.1); CREATININE 2.1 mg/dL (0.7-1.3)
[2018-05-09 08:07] LABS: POTASSIUM 4.9 mmol/L (3.5-5.1)
[2018-05-09 23:10] LABS: GLYCOHEMOGLOBIN (HGB A1C) 6.3 % (4.8-5.6)
[2018-05-10] VITALS (25 sets, daily range): BP systolic 90–152; BP diastolic 41–69
[2018-05-10 02:25] LABS: MCH 31.5 pg (26.0-34.0); MCHC 33.3 g/dL (28.0-37.0); MCV 94.5 fL (80.0-100.0); PLATELET COUNT 236 thou/uL (150-400); RBC 3.81 mil/uL (4.50-6.00); RDW 14.2 % (10.5-14.5); WBC 8.6 thou/uL (4.0-11.0)
[2018-05-10 02:38] LABS: ALBUMIN 2.8 g/dL (3.4-5.0); CALCIUM 8.6 mg/dL (8.5-10.1); CREATININE 1.5 mg/dL (0.7-1.3); MAGNESIUM 2.5 mg/dL (1.8-2.4); POTASSIUM 4.6 mmol/L (3.5-5.1); TOTAL BILIRUBIN 0.5 mg/dL (<0.1-1.0); TOTAL PROTEIN 6.2 g/dL (6.4-8.2)
[2018-05-10 03:17] LABS: ABSOLUTE NEUTROPHILS 5.9 thou/uL (1.4-8.2); LARGE PLATELETS RARE
[2018-05-11] VITALS (24 sets, daily range): BP systolic 127–168; BP diastolic 48–120
[2018-05-11 05:12] LABS: HEMATOCRIT 30.5 % (42.0-52.0); HEMOGLOBIN 10.4 gm/dL (14.0-18.0); MCH 32.5 pg (26.0-34.0); MCHC 34.1 g/dL (28.0-37.0); MCV 95.4 fL (80.0-100.0); PLATELET COUNT 219 thou/uL (150-400); RDW 14.7 % (10.5-14.5); WBC 10.7 thou/uL (4.0-11.0)
[2018-05-11 05:20] LABS: CALCIUM 8.4 mg/dL (8.5-10.1); CREATININE 1.2 mg/dL (0.7-1.3); MAGNESIUM 2.5 mg/dL (1.8-2.4); POTASSIUM 4.3 mmol/L (3.5-5.1)
[2018-05-11 07:20] LABS: ABSOLUTE NEUTROPHILS 8.2 thou/uL (1.4-8.2)
[2018-05-11 07:21] LABS: ANISOCYTOSIS SLIGHT
[2018-05-12] VITALS (24 sets, daily range): BP systolic 121–168; BP diastolic 54–72
[2018-05-12 06:07] LABS: ABSOLUTE NEUTROPHILS 13.3 thou/uL (1.4-8.2); BASOPHILS 0.3 % (0.0-2.0); EOSINOPHILS 0.2 % (0.0-3.0); HEMATOCRIT 24.9 % (42.0-52.0); LYMPHOCYTES 7.4 % (24.0-44.0); MCH 32.2 pg (26.0-34.0); MCHC 33.8 g/dL (28.0-37.0); MCV 95.4 fL (80.0-100.0); PLATELET COUNT 205 thou/uL (150-400); POLYS 80.1 % (36.0-66.0); RBC 2.61 mil/uL (4.50-6.00); RDW 14.4 % (10.5-14.5); WBC 16.6 thou/uL (4.0-11.0)
[2018-05-12 06:08] LABS: HEMOGLOBIN 8.4 gm/dL (14.0-18.0)
[2018-05-12 06:20] LABS: ALBUMIN 2.2 g/dL (3.4-5.0); CALCIUM 8.4 mg/dL (8.5-10.1); POTASSIUM 3.8 mmol/L (3.5-5.1); TOTAL BILIRUBIN 0.4 mg/dL (<0.1-1.0); TOTAL PROTEIN 5.6 g/dL (6.4-8.2)
[2018-05-12 13:00] LABS: HEMATOCRIT 23.2 % (42.0-52.0); HEMOGLOBIN 7.7 gm/dL (14.0-18.0)
[2018-05-13] VITALS (29 sets, daily range): BP systolic 112–178; BP diastolic 46–75
[2018-05-13 00:03] LABS: HEMOGLOBIN 6.6 gm/dL (14.0-18.0)
[2018-05-13 00:08] LABS: HEMATOCRIT 19.6 % (42.0-52.0)
[2018-05-13 07:14] LABS: HEMATOCRIT 21.4 % (42.0-52.0); HEMOGLOBIN 7.4 gm/dL (14.0-18.0)
[2018-05-13 12:15] LABS: HEMATOCRIT 22.2 % (42.0-52.0); HEMOGLOBIN 8.3 gm/dL (14.0-18.0)
[2018-05-13 18:28] LABS: HEMATOCRIT 25.9 % (42.0-52.0)
[2018-05-14] VITALS (32 sets, daily range): BP systolic 82–134; BP diastolic 31–55
[2018-05-14 00:09] LABS: HEMATOCRIT 23.3 % (42.0-52.0); HEMOGLOBIN 8.1 gm/dL (14.0-18.0); MCH 31.4 pg (26.0-34.0); MCHC 34.9 g/dL (28.0-37.0); PLATELET COUNT 181 thou/uL (150-400); RBC 2.59 mil/uL (4.50-6.00); RDW 15.4 % (10.5-14.5); WBC 20.8 thou/uL (4.0-11.0)
[2018-05-14 00:21] LABS: MCV 90.1 fL (80.0-100.0)
[2018-05-14 00:52] LABS: ABSOLUTE NEUTROPHILS 19.3 thou/uL (1.4-8.2); ANISOCYTOSIS SLIGHT
[2018-05-14 06:30] LABS: HEMATOCRIT 21.9 % (42.0-52.0); HEMOGLOBIN 7.7 gm/dL (14.0-18.0)
[2018-05-14 06:44] LABS: CALCIUM 8.7 mg/dL (8.5-10.1); CREATININE 1.1 mg/dL (0.7-1.3); POTASSIUM 3.1 mmol/L (3.5-5.1)
[2018-05-14 13:02] LABS: HEMATOCRIT 21.3 % (42.0-52.0); HEMOGLOBIN 7.4 gm/dL (14.0-18.0); MCH 31.5 pg (26.0-34.0); MCV 90.1 fL (80.0-100.0); RBC 2.36 mil/uL (4.50-6.00); RDW 15.4 % (10.5-14.5); WBC 19.8 thou/uL (4.0-11.0)
[2018-05-14 17:25] LABS: BE(vivo) 9.8 mmol/L (-2 to +3); PCO2 62.3 mmHg (35.0-45.0); PO2 143.1 mmHg (80.0-100.0); sO2 98.7 % (92.0-98.0)
[2018-05-15] VITALS (28 sets, daily range): BP systolic 84–139; BP diastolic 41–58
[2018-05-15 00:19] LABS: HEMOGLOBIN 7.9 gm/dL (14.0-18.0)
[2018-05-15 04:26] LABS: CALCIUM 8.5 mg/dL (8.5-10.1); CREATININE 1.1 mg/dL (0.7-1.3); POTASSIUM 3.8 mmol/L (3.5-5.1)
[2018-05-15 07:02] LABS: HEMATOCRIT 23.1 % (42.0-52.0)
[2018-05-15 08:34] LABS: MCH 31.3 pg (26.0-34.0); MCHC 34.5 g/dL (28.0-37.0); MCV 90.9 fL (80.0-100.0); PLATELET COUNT 209 thou/uL (150-400); RBC 2.56 mil/uL (4.50-6.00); RDW 14.9 % (10.5-14.5); WBC 14.5 thou/uL (4.0-11.0)
[2018-05-15 09:24] LABS: ABSOLUTE NEUTROPHILS 10.9 thou/uL (1.4-8.2); ANISOCYTOSIS SLIGHT; HYPOCHROMASIA SLIGHT; LARGE PLATELETS OCCASIONAL; METAMYELOCYTES 1 %; POIKILOCYTOSIS SLIGHT; POLYCHROMASIA SLIGHT
[2018-05-15 15:58] LABS: HEMATOCRIT 22.4 % (42.0-52.0); HEMOGLOBIN 7.7 gm/dL (14.0-18.0)
[2018-05-16] VITALS (35 sets, daily range): BP systolic 92–180; BP diastolic 37–75
[2018-05-16 00:44] LABS: HEMATOCRIT 23.4 % (42.0-52.0); HEMOGLOBIN 8.1 gm/dL (14.0-18.0)
[2018-05-16 05:55] LABS: HEMATOCRIT 23.6 % (42.0-52.0); MCH 31.9 pg (26.0-34.0); MCHC 34.1 g/dL (28.0-37.0); MCV 93.4 fL (80.0-100.0); PLATELET COUNT 255 thou/uL (150-400); RBC 2.52 mil/uL (4.50-6.00); RDW 15.5 % (10.5-14.5); WBC 16.6 thou/uL (4.0-11.0)
[2018-05-16 06:02] LABS: CALCIUM 8.3 mg/dL (8.5-10.1); CREATININE 1.1 mg/dL (0.7-1.3); POTASSIUM 3.5 mmol/L (3.5-5.1)
[2018-05-16 08:42] LABS: ABSOLUTE NEUTROPHILS 11.3 thou/uL (1.4-8.2); ANISOCYTOSIS 1+; PLATELET ESTIMATE NORMAL
[2018-05-16 12:41] LABS: BE(vivo) 5.7 mmol/L (-2 to +3); HCO3 30.6 mmol/L (22.0-26.0); PCO2 46.4 mmHg (35.0-45.0); pH 7.437 (7.360-7.450); sO2 93.2 % (92.0-98.0)
[2018-05-16 14:29] LABS: HEMATOCRIT 24.5 % (42.0-52.0); HEMOGLOBIN 8.5 gm/dL (14.0-18.0)
[2018-05-16 22:51] LABS: HEMATOCRIT 24.1 % (42.0-52.0); HEMOGLOBIN 8.1 gm/dL (14.0-18.0)
[2018-05-17] VITALS (49 sets, daily range): BP systolic 102–208; BP diastolic 40–75
[2018-05-17 05:28] LABS: HEMATOCRIT 24.5 % (42.0-52.0); HEMOGLOBIN 8.2 gm/dL (14.0-18.0); MCH 31.3 pg (26.0-34.0); MCHC 33.3 g/dL (28.0-37.0); MCV 93.8 fL (80.0-100.0); PLATELET COUNT 304 thou/uL (150-400); RBC 2.62 mil/uL (4.50-6.00); RDW 15.4 % (10.5-14.5); WBC 19.7 thou/uL (4.0-11.0)
[2018-05-17 05:36] LABS: CALCIUM 8.9 mg/dL (8.5-10.1); POTASSIUM 3.2 mmol/L (3.5-5.1)
[2018-05-17 06:15] LABS: ABSOLUTE NEUTROPHILS 18.9 thou/uL (1.4-8.2); METAMYELOCYTES 1 %; PLATELET ESTIMATE NORMAL; POLYCHROMASIA SLIGHT
[2018-05-17 12:36] LABS: HEMATOCRIT 21.9 % (42.0-52.0); HEMOGLOBIN 7.5 gm/dL (14.0-18.0)
[2018-05-17 22:09] LABS: HEMOGLOBIN 6.9 gm/dL (14.0-18.0)
[2018-05-17 22:11] LABS: HEMATOCRIT 20.7 % (42.0-52.0)
[2018-05-18] VITALS (36 sets, daily range): BP systolic 122–168; BP diastolic 45–77
[2018-05-18 05:34] LABS: HEMATOCRIT 23.4 % (42.0-52.0); HEMOGLOBIN 7.8 gm/dL (14.0-18.0); MCH 30.5 pg (26.0-34.0); MCHC 33.3 g/dL (28.0-37.0); MCV 91.8 fL (80.0-100.0); PLATELET COUNT 297 thou/uL (150-400); RBC 2.55 mil/uL (4.50-6.00); RDW 15.5 % (10.5-14.5); WBC 26.6 thou/uL (4.0-11.0)
[2018-05-18 05:42] LABS: CALCIUM 8.8 mg/dL (8.5-10.1); POTASSIUM 3.5 mmol/L (3.5-5.1)
[2018-05-18 06:26] LABS: ABSOLUTE NEUTROPHILS 23.1 thou/uL (1.4-8.2)
[2018-05-18 06:27] LABS: PLATELET ESTIMATE NORMAL; POLYCHROMASIA 1+
[2018-05-18 13:34] LABS: HEMATOCRIT 26.9 % (42.0-52.0); HEMOGLOBIN 9.2 gm/dL (14.0-18.0)
[2018-05-19] VITALS (57 sets, daily range): BP systolic 73–151; BP diastolic 27–86
[2018-05-19 05:38] LABS: HEMATOCRIT 24.6 % (42.0-52.0); HEMOGLOBIN 8.3 gm/dL (14.0-18.0); MCH 31.3 pg (26.0-34.0); MCHC 33.6 g/dL (28.0-37.0); MCV 93.3 fL (80.0-100.0); PLATELET COUNT 295 thou/uL (150-400); RBC 2.64 mil/uL (4.50-6.00); RDW 15.6 % (10.5-14.5); WBC 25.9 thou/uL (4.0-11.0)
[2018-05-19 06:44] LABS: ABSOLUTE NEUTROPHILS 22.5 thou/uL (1.4-8.2); NUCLEATED RBCS 2 /100WBC; PLATELET ESTIMATE NORMAL
[2018-05-19 11:49] LABS: BE(vivo) 2.2 mmol/L (-2 to +3); HCO3 26.7 mmol/L (22.0-26.0); PO2 77.6 mmHg (80.0-100.0); pH 7.431 (7.360-7.450); sO2 95.8 % (92.0-98.0)
[2018-05-19 13:56] LABS: ALBUMIN 1.6 g/dL (3.4-5.0); CALCIUM 8.2 mg/dL (8.5-10.1); CREATININE 1.8 mg/dL (0.7-1.3); PHOSPHORUS 6.9 mg/dL (2.5-4.9); POTASSIUM 5.4 mmol/L (3.5-5.1)
[2018-05-19 15:08] LABS: MCH 31.3 pg (26.0-34.0)
[2018-05-19 15:10] LABS: MCHC 33.4 g/dL (28.0-37.0); MCV 93.9 fL (80.0-100.0); RBC 1.59 mil/uL (4.50-6.00); RDW 15.2 % (10.5-14.5); WBC 25.8 thou/uL (4.0-11.0)
[2018-05-19 15:13] LABS: HEMATOCRIT 14.9 % (42.0-52.0)
[2018-05-19 23:17] LABS: HEMATOCRIT 29.6 % (42.0-52.0); HEMOGLOBIN 10.1 gm/dL (14.0-18.0)
[2018-05-20] VITALS (56 sets, daily range): BP systolic 84–128; BP diastolic 33–103
[2018-05-20 05:00] LABS: HEMATOCRIT 27.4 % (42.0-52.0); MCH 29.4 pg (26.0-34.0); MCHC 32.8 g/dL (28.0-37.0); MCV 89.6 fL (80.0-100.0); PLATELET COUNT 188 thou/uL (150-400); RBC 3.06 mil/uL (4.50-6.00); RDW 16.3 % (10.5-14.5); WBC 27.7 thou/uL (4.0-11.0)
[2018-05-20 05:12] LABS: CALCIUM 6.9 mg/dL (8.5-10.1); CREATININE 2.2 mg/dL (0.7-1.3); POTASSIUM 5.9 mmol/L (3.5-5.1)
[2018-05-20 05:22] LABS: ABSOLUTE NEUTROPHILS 25.8 thou/uL (1.4-8.2); ANISOCYTOSIS SLIGHT; PLATELET ESTIMATE NORMAL; POLYCHROMASIA 1+
[2018-05-20 10:00] LABS: HEMATOCRIT 24.9 % (42.0-52.0); HEMOGLOBIN 8.1 gm/dL (14.0-18.0)
[2018-05-20 10:04] LABS: CALCIUM 7.1 mg/dL (8.5-10.1); CREATININE 2.5 mg/dL (0.7-1.3)
[2018-05-20 10:15] LABS: ALBUMIN 1.5 g/dL (3.4-5.0); PHOSPHORUS 9.4 mg/dL (2.5-4.9)
[2018-05-20 10:16] LABS: TROPONIN-I 4.5 ng/mL (<0.06)
[2018-05-20 10:17] LABS: POTASSIUM 6.4 mmol/L (3.5-5.1)
[2018-05-20 10:31] LABS: INR 1.5; PROTIME 16.1 Seconds (9.3-11.4)
[2018-05-20 10:38] LABS: APTT 33.1 Seconds (24.5-32.8)
[2018-05-20 10:50] LABS: BE(vivo) -12.6 mmol/L (-2 to +3); HCO3 17.2 mmol/L (22.0-26.0); PCO2 64.7 mmHg (35.0-45.0); PO2 76.5 mmHg (80.0-100.0); pH 7.043 (7.360-7.450); sO2 87.8 % (92.0-98.0)
[2018-05-20 13:13] LABS: URINE BILIRUBIN NEGATIVE (Negative); URINE BLOOD 3+ (Negative); URINE CLARITY CLEAR; URINE COLOR YELLOW; URINE GLUCOSE-RANDOM* NEGATIVE (Negative); URINE KETONES TRACE (Negative); URINE LEUKOCYTES NEGATIVE (Negative); URINE NITRITE NEGATIVE (Negative); URINE PROTEIN (DIPSTICK) 1+ (Negative); URINE SPECIFIC GRAVITY 1.025 (1.005-1.035); URINE UROBILINOGEN 0.2 E.U./dl (0.2-1.0)
[2018-05-20 13:20] LABS: AMORPHOUS URATES Few /LPF (None Seen); BACTERIA None Seen /HPF (None Seen); CASTS None Seen /LPF (None Seen); CRYSTALS None Seen /LPF (None Seen); SQUAMOUS None Seen /LPF (0-3); URINE RBC 3-10 Few /HPF (0-2); URINE WBC 0-5 Rare /HPF (0-5)
[2018-05-20 13:23] LABS: URINE CREATININE-RANDOM* 83.3 mg/dL; URINE PROTEIN-RANDOM* 177.9 mg/dL (<11.9)
[2018-05-20 13:39] LABS: BE(vivo) -12.5 mmol/L (-2 to +3); HCO3 15.9 mmol/L (22.0-26.0); PO2 76.2 mmHg (80.0-100.0); pH 7.113 (7.360-7.450)
[2018-05-20 13:57] LABS: HEMOGLOBIN 6.6 gm/dL (14.0-18.0)
[2018-05-20 13:59] LABS: MCH 30.1 pg (26.0-34.0); MCHC 32.9 g/dL (28.0-37.0); MCV 91.6 fL (80.0-100.0); RBC 2.19 mil/uL (4.50-6.00); RDW 16.7 % (10.5-14.5)
[2018-05-20 14:09] LABS: ALBUMIN 2.1 g/dL (3.4-5.0); CALCIUM 7.3 mg/dL (8.5-10.1); CREATININE 2.5 mg/dL (0.7-1.3); PHOSPHORUS 8.9 mg/dL (2.5-4.9); POTASSIUM 5.6 mmol/L (3.5-5.1)
[2018-05-20 20:52] LABS: BE(vivo) -6.7 mmol/L (-2 to +3); HCO3 21.9 mmol/L (22.0-26.0); PCO2 61.2 mmHg (35.0-45.0); PO2 84.7 mmHg (80.0-100.0); sO2 93.4 % (92.0-98.0)
[2018-05-20 20:53] LABS: pH 7.172 (7.360-7.450)
[2018-05-20 21:08] LABS: HEMATOCRIT 24.9 % (42.0-52.0); HEMOGLOBIN 8.4 gm/dL (14.0-18.0); MCH 30.1 pg (26.0-34.0); MCHC 33.5 g/dL (28.0-37.0); MCV 89.8 fL (80.0-100.0); RBC 2.78 mil/uL (4.50-6.00); RDW 15.5 % (10.5-14.5)
[2018-05-20 21:12] LABS: WBC 42.2 thou/uL (4.0-11.0)
[2018-05-21] VITALS (104 sets, daily range): BP systolic 93–144; BP diastolic 26–91
[2018-05-21 00:07] LABS: BE(vivo) -5.8 mmol/L (-2 to +3); HCO3 21.5 mmol/L (22.0-26.0); PCO2 51.9 mmHg (35.0-45.0); PO2 98.1 mmHg (80.0-100.0); sO2 96.2 % (92.0-98.0)
[2018-05-21 00:08] LABS: pH 7.236 (7.360-7.450)
[2018-05-21 00:19] LABS: HEMATOCRIT 24.7 % (42.0-52.0); HEMOGLOBIN 8.1 gm/dL (14.0-18.0)
[2018-05-21 04:27] LABS: MCH 29.4 pg (26.0-34.0); MCHC 33.3 g/dL (28.0-37.0); MCV 88.5 fL (80.0-100.0); PLATELET COUNT 174 thou/uL (150-400); RBC 2.71 mil/uL (4.50-6.00); RDW 15.4 % (10.5-14.5); WBC 37.5 thou/uL (4.0-11.0)
[2018-05-21 04:40] LABS: CALCIUM 6.9 mg/dL (8.5-10.1); CREATININE 3.1 mg/dL (0.7-1.3); POTASSIUM 5.4 mmol/L (3.5-5.1)
[2018-05-21 04:44] LABS: TROPONIN-I 25.39 ng/mL (<0.06)
[2018-05-21 05:40] LABS: BE(vivo) -3.8 mmol/L (-2 to +3); HCO3 22.8 mmol/L (22.0-26.0); PO2 117.6 mmHg (80.0-100.0); sO2 97.8 % (92.0-98.0)
[2018-05-21 05:41] LABS: pH 7.285 (7.360-7.450)
[2018-05-21 06:21] LABS: ABSOLUTE NEUTROPHILS 35.3 thou/uL (1.4-8.2); NUCLEATED RBCS 1 /100WBC
[2018-05-21 06:22] LABS: ANISOCYTOSIS SLIGHT; PLATELET ESTIMATE NORMAL
[2018-05-21 06:23] LABS: POLYCHROMASIA 1+
[2018-05-21 12:58] LABS: HEMATOCRIT 23.9 % (42.0-52.0); HEMOGLOBIN 7.9 gm/dL (14.0-18.0)
[2018-05-21 13:01] LABS: CALCIUM 7.2 mg/dL (8.5-10.1); CREATININE 3.4 mg/dL (0.7-1.3); POTASSIUM 5.4 mmol/L (3.5-5.1)
[2018-05-21 18:32] LABS: HEMATOCRIT 26.3 % (42.0-52.0); HEMOGLOBIN 8.9 gm/dL (14.0-18.0)
[2018-05-21 18:43] LABS: ALBUMIN 2.1 g/dL (3.4-5.0); CALCIUM 8.1 mg/dL (8.5-10.1); CREATININE 2.5 mg/dL (0.7-1.3); PHOSPHORUS 5.9 mg/dL (2.5-4.9)
[2018-05-22] VITALS (74 sets, daily range): BP systolic 84–134; BP diastolic 27–93
[2018-05-22 00:34] LABS: HEMATOCRIT 25.9 % (42.0-52.0)
[2018-05-22 00:37] LABS: HEMOGLOBIN 8.7 gm/dL (14.0-18.0)
[2018-05-22 00:57] LABS: CALCIUM 8.3 mg/dL (8.5-10.1); POTASSIUM 4.5 mmol/L (3.5-5.1)
[2018-05-22 05:41] LABS: CALCIUM 8.6 mg/dL (8.5-10.1); CREATININE 1.7 mg/dL (0.7-1.3); POTASSIUM 4.4 mmol/L (3.5-5.1)
[2018-05-22 05:42] LABS: HEMATOCRIT 26.1 % (42.0-52.0); HEMOGLOBIN 8.8 gm/dL (14.0-18.0); MCH 30.3 pg (26.0-34.0); MCHC 33.8 g/dL (28.0-37.0); MCV 89.5 fL (80.0-100.0); PLATELET COUNT 185 thou/uL (150-400); RBC 2.91 mil/uL (4.50-6.00)
[2018-05-22 05:42] LABS: BE(vivo) -3.3 mmol/L (-2 to +3); HCO3 22.6 mmol/L (22.0-26.0); PCO2 44.2 mmHg (35.0-45.0); PO2 89.4 mmHg (80.0-100.0); sO2 96.2 % (92.0-98.0)
[2018-05-22 05:43] LABS: pH 7.326 (7.360-7.450)
[2018-05-22 05:46] LABS: WBC 48.4 thou/uL (4.0-11.0)
[2018-05-22 06:26] LABS: ABSOLUTE NEUTROPHILS 47.4 thou/uL (1.4-8.2); NUCLEATED RBCS 8 /100WBC; PLATELET ESTIMATE NORMAL
[2018-05-22 13:16] LABS: CALCIUM 7.9 mg/dL (8.5-10.1); CREATININE 2.2 mg/dL (0.7-1.3); POTASSIUM 4.4 mmol/L (3.5-5.1)
[2018-05-23] VITALS (78 sets, daily range): BP systolic 81–133; BP diastolic 39–56
[2018-05-23 04:51] LABS: HEMATOCRIT 21.8 % (42.0-52.0); HEMOGLOBIN 7.1 gm/dL (14.0-18.0); MCH 29.9 pg (26.0-34.0); MCHC 32.4 g/dL (28.0-37.0); MCV 92.4 fL (80.0-100.0); PLATELET COUNT 170 thou/uL (150-400); RBC 2.36 mil/uL (4.50-6.00); RDW 15.8 % (10.5-14.5); WBC 36.3 thou/uL (4.0-11.0)
[2018-05-23 04:56] LABS: CALCIUM 7.8 mg/dL (8.5-10.1); CREATININE 2.9 mg/dL (0.7-1.3); POTASSIUM 4.2 mmol/L (3.5-5.1)
[2018-05-23 07:06] LABS: ABSOLUTE NEUTROPHILS 34.1 thou/uL (1.4-8.2); METAMYELOCYTES 1 %; MYELOCYTES 1 %; NUCLEATED RBCS 4 /100WBC
[2018-05-23 07:07] LABS: POLYCHROMASIA 2+
[2018-05-23 07:08] LABS: LARGE PLATELETS FEW
[2018-05-24] VITALS (63 sets, daily range): BP systolic 68–156; BP diastolic 37–66
[2018-05-24 04:58] LABS: HEMATOCRIT 20.9 % (42.0-52.0); HEMOGLOBIN 6.9 gm/dL (14.0-18.0); MCH 30.7 pg (26.0-34.0); MCHC 33.2 g/dL (28.0-37.0); MCV 92.5 fL (80.0-100.0); RBC 2.26 mil/uL (4.50-6.00); WBC 30.1 thou/uL (4.0-11.0)
[2018-05-24 05:14] LABS: ALBUMIN 1.4 g/dL (3.4-5.0); CALCIUM 7.9 mg/dL (8.5-10.1); CREATININE 2.2 mg/dL (0.7-1.3); PHOSPHORUS 3.2 mg/dL (2.5-4.9); POTASSIUM 4.3 mmol/L (3.5-5.1); TOTAL BILIRUBIN 2.3 mg/dL (<0.1-1.0); TOTAL PROTEIN 4.9 g/dL (6.4-8.2)
[2018-05-24 11:08] LABS: ALBUMIN 1.4 g/dL (3.4-5.0); DIRECT BILIRUBIN 1.5 mg/dL (<0.1-0.3); TOTAL BILIRUBIN 2.1 mg/dL (<0.1-1.0); TOTAL PROTEIN 4.8 g/dL (6.4-8.2)
[2018-05-24 17:08] LABS: HEP B SURFACE Ab(ANTI-HBS Reactive (()); HEPATITIS B SURFACE AG Negative (Negative)
[2018-05-25] VITALS (62 sets, daily range): BP systolic 78–144; BP diastolic 32–60
[2018-05-25 07:01] LABS: HEMATOCRIT 22.7 % (42.0-52.0); HEMOGLOBIN 7.4 gm/dL (14.0-18.0); MCH 28.6 pg (26.0-34.0); MCHC 32.6 g/dL (28.0-37.0); MCV 87.6 fL (80.0-100.0); RBC 2.59 mil/uL (4.50-6.00); RDW 21.4 % (10.5-14.5); WBC 24.5 thou/uL (4.0-11.0)
[2018-05-25 07:05] LABS: CREATININE 2.5 mg/dL (0.7-1.3); POTASSIUM 3.9 mmol/L (3.5-5.1)
[2018-05-25 09:43] LABS: ALBUMIN 1.4 g/dL (3.4-5.0); DIRECT BILIRUBIN 1.6 mg/dL (<0.1-0.3); TOTAL BILIRUBIN 2.1 mg/dL (<0.1-1.0); TOTAL PROTEIN 5.2 g/dL (6.4-8.2)
[2018-05-25 12:42] LABS: HEMATOCRIT 22.3 % (42.0-52.0); HEMOGLOBIN 7.5 gm/dL (14.0-18.0)
[2018-05-25 15:34] LABS: BE(vivo) -3.1 mmol/L (-2 to +3); HCO3 22.7 mmol/L (22.0-26.0); PCO2 43.8 mmHg (35.0-45.0); PO2 85.9 mmHg (80.0-100.0); pH 7.332 (7.360-7.450); sO2 95.9 % (92.0-98.0)
[2018-05-25 23:26] LABS: HEMATOCRIT 23.2 % (42.0-52.0); HEMOGLOBIN 7.8 gm/dL (14.0-18.0)
[2018-05-26] VITALS (98 sets, daily range): BP systolic 71–161; BP diastolic 26–75
[2018-05-26 05:02] LABS: HEMATOCRIT 21.9 % (42.0-52.0); HEMOGLOBIN 7.1 gm/dL (14.0-18.0); MCH 29.1 pg (26.0-34.0); MCHC 32.3 g/dL (28.0-37.0); MCV 89.8 fL (80.0-100.0); RBC 2.44 mil/uL (4.50-6.00); RDW 21.3 % (10.5-14.5); WBC 25.4 thou/uL (4.0-11.0)
[2018-05-26 05:16] LABS: ALBUMIN 1.3 g/dL (3.4-5.0); DIRECT BILIRUBIN 1.5 mg/dL (<0.1-0.3)
[2018-05-26 05:31] LABS: D-DIMER 21.71 ug/mLFEU (0.19-0.50)
[2018-05-26 05:42] LABS: APTT 35.1 Seconds (24.5-32.8); PROTIME 10.3 Seconds (9.3-11.4)
[2018-05-26 05:54] LABS: HEMATOCRIT 21.4 % (42.0-52.0); HEMOGLOBIN 7.1 gm/dL (14.0-18.0)
[2018-05-26 05:55] LABS: ALBUMIN 1.2 g/dL (3.4-5.0); CALCIUM 7.6 mg/dL (8.5-10.1); CREATININE 2.1 mg/dL (0.7-1.3); PHOSPHORUS 1.8 mg/dL (2.5-4.9); POTASSIUM 3.8 mmol/L (3.5-5.1)
[2018-05-26 14:25] LABS: HEMATOCRIT 21.6 % (42.0-52.0); HEMOGLOBIN 7.2 gm/dL (14.0-18.0)
[2018-05-26 23:48] LABS: HEMATOCRIT 20.1 % (42.0-52.0); HEMOGLOBIN 6.7 gm/dL (14.0-18.0)
[2018-05-27] VITALS (96 sets, daily range): BP systolic 72–189; BP diastolic 23–75
[2018-05-27 05:50] LABS: HEMATOCRIT 26.6 % (42.0-52.0); MCH 29.8 pg (26.0-34.0); MCHC 33.3 g/dL (28.0-37.0); MCV 89.4 fL (80.0-100.0); RBC 2.97 mil/uL (4.50-6.00); RDW 18.8 % (10.5-14.5); WBC 19.5 thou/uL (4.0-11.0)
[2018-05-27 05:57] LABS: HEMOGLOBIN 8.9 gm/dL (14.0-18.0)
[2018-05-27 06:03] LABS: ALBUMIN 1.2 g/dL (3.4-5.0); CALCIUM 8.2 mg/dL (8.5-10.1); PHOSPHORUS 2.4 mg/dL (2.5-4.9); POTASSIUM 3.7 mmol/L (3.5-5.1)
[2018-05-27 06:06] LABS: CREATININE 3.1 mg/dL (0.7-1.3)
[2018-05-27 08:55] LABS: ALBUMIN 1.2 g/dL (3.4-5.0); DIRECT BILIRUBIN 1.9 mg/dL (<0.1-0.3); TOTAL BILIRUBIN 2.3 mg/dL (<0.1-1.0); TOTAL PROTEIN 5.2 g/dL (6.4-8.2)
[2018-05-27 09:29] LABS: HEMATOCRIT 26.6 % (42.0-52.0); HEMOGLOBIN 9.1 gm/dL (14.0-18.0)
[2018-05-28] VITALS (103 sets, daily range): BP systolic 62–166; BP diastolic 32–70
[2018-05-28 06:11] LABS: HEMATOCRIT 24.7 % (42.0-52.0); HEMOGLOBIN 8.6 gm/dL (14.0-18.0); MCH 31.6 pg (26.0-34.0); MCHC 34.9 g/dL (28.0-37.0); MCV 90.3 fL (80.0-100.0); RBC 2.73 mil/uL (4.50-6.00); RDW 19.1 % (10.5-14.5); WBC 18.6 thou/uL (4.0-11.0)
[2018-05-28 06:21] LABS: ALBUMIN 1.2 g/dL (3.4-5.0); CALCIUM 8.1 mg/dL (8.5-10.1); CREATININE 2.3 mg/dL (0.7-1.3); PHOSPHORUS 1.2 mg/dL (2.5-4.9); POTASSIUM 3.6 mmol/L (3.5-5.1)
[2018-05-28 06:43] LABS: ANISOCYTOSIS 1+
[2018-05-28 06:50] LABS: PLATELET COUNT 77 thou/uL (150-400)
[2018-05-29] VITALS (49 sets, daily range): BP systolic 96–140; BP diastolic 39–65
[2018-05-29 05:18] LABS: HEMATOCRIT 26.2 % (42.0-52.0); HEMOGLOBIN 8.9 gm/dL (14.0-18.0); MCH 30.9 pg (26.0-34.0); MCHC 34.1 g/dL (28.0-37.0); MCV 90.7 fL (80.0-100.0); PLATELET COUNT 75 thou/uL (150-400); RBC 2.89 mil/uL (4.50-6.00); RDW 20.2 % (10.5-14.5); WBC 21.8 thou/uL (4.0-11.0)
[2018-05-29 05:28] LABS: ALBUMIN 1.2 g/dL (3.4-5.0); PHOSPHORUS 0.9 mg/dL (2.5-4.9); POTASSIUM 3.9 mmol/L (3.5-5.1)
[2018-05-29 05:32] LABS: CREATININE 1.2 mg/dL (0.7-1.3)
[2018-05-29 05:50] LABS: ABSOLUTE NEUTROPHILS 20.1 thou/uL (1.4-8.2)
[2018-05-29 05:51] LABS: ANISOCYTOSIS 3+; POLYCHROMASIA SLIGHT; TARGET CELLS OCCASIONAL
[2018-05-29 05:52] LABS: POIKILOCYTOSIS SLIGHT
[2018-05-30] VITALS (131 sets, daily range): BP systolic 78–150; BP diastolic 26–68
[2018-05-30 05:22] LABS: HEMATOCRIT 23.9 % (42.0-52.0); MCH 30.9 pg (26.0-34.0); MCHC 33.6 g/dL (28.0-37.0); PLATELET COUNT 119 thou/uL (150-400); RDW 27.2 % (10.5-14.5); WBC 19.3 thou/uL (4.0-11.0)
[2018-05-30 05:37] LABS: ALBUMIN 1.1 g/dL (3.4-5.0); CALCIUM 8.2 mg/dL (8.5-10.1); PHOSPHORUS 1.2 mg/dL (2.5-4.9); POTASSIUM 3.3 mmol/L (3.5-5.1); TOTAL BILIRUBIN 2.9 mg/dL (<0.1-1.0); TOTAL PROTEIN 5.3 g/dL (6.4-8.2)
[2018-05-30 05:41] LABS: CREATININE 2.4 mg/dL (0.7-1.3)
[2018-05-30 08:45] LABS: ABSOLUTE NEUTROPHILS 15.4 thou/uL (1.4-8.2); ANISOCYTOSIS 2+; METAMYELOCYTES 1 %; PLATELET ESTIMATE NORMAL
[2018-05-31] VITALS (59 sets, daily range): BP systolic 75–135; BP diastolic 34–64
[2018-05-31 05:28] LABS: HEMATOCRIT 22.8 % (42.0-52.0); HEMOGLOBIN 7.7 gm/dL (14.0-18.0); MCH 30.6 pg (26.0-34.0); MCHC 33.9 g/dL (28.0-37.0); MCV 90.3 fL (80.0-100.0); PLATELET COUNT 117 thou/uL (150-400); RBC 2.52 mil/uL (4.50-6.00); RDW 24.1 % (10.5-14.5); WBC 21.1 thou/uL (4.0-11.0)
[2018-05-31 05:43] LABS: ALBUMIN 1.2 g/dL (3.4-5.0); CALCIUM 7.9 mg/dL (8.5-10.1); CREATININE 1.6 mg/dL (0.7-1.3); PHOSPHORUS 2.2 mg/dL (2.5-4.9); POTASSIUM 3.9 mmol/L (3.5-5.1)
[2018-05-31 09:23] LABS: ABSOLUTE NEUTROPHILS 16.5 thou/uL (1.4-8.2); ANISOCYTOSIS 3+; HYPOCHROMASIA 2+; METAMYELOCYTES 2 %; MICROCYTES 1+; NUCLEATED RBCS 1 /100WBC; PLATELET ESTIMATE NORMAL
[2018-06-01] VITALS (33 sets, daily range): BP systolic 79–116; BP diastolic 31–58
[2018-06-01 05:53] LABS: HEMATOCRIT 22.2 % (42.0-52.0); HEMOGLOBIN 7.3 gm/dL (14.0-18.0); MCH 30.4 pg (26.0-34.0); MCHC 32.9 g/dL (28.0-37.0); MCV 92.3 fL (80.0-100.0); PLATELET COUNT 147 thou/uL (150-400); RDW 25.9 % (10.5-14.5); WBC 19.1 thou/uL (4.0-11.0)
[2018-06-01 06:30] LABS: ALBUMIN 1.1 g/dL (3.4-5.0); CALCIUM 7.8 mg/dL (8.5-10.1); CREATININE 2.4 mg/dL (0.7-1.3); DIRECT BILIRUBIN 1.6 mg/dL (<0.1-0.3); PHOSPHORUS 3.6 mg/dL (2.5-4.9); POTASSIUM 4.1 mmol/L (3.5-5.1); TOTAL BILIRUBIN 1.9 mg/dL (<0.1-1.0); TOTAL PROTEIN 5.7 g/dL (6.4-8.2)
[2018-06-01 08:54] LABS: ABSOLUTE NEUTROPHILS 15.3 thou/uL (1.4-8.2); METAMYELOCYTES 2 %; NUCLEATED RBCS 1 /100WBC
[2018-06-01 09:03] LABS: ANISOCYTOSIS 2+; POIKILOCYTOSIS SLIGHT
[2018-06-01 09:04] LABS: HYPOCHROMASIA 1+; MICROCYTES SLIGHT; TARGET CELLS FEW
[2018-06-01 21:04] LABS: ALBUMIN 1.3 g/dL (3.4-5.0); CALCIUM 8.2 mg/dL (8.5-10.1); MAGNESIUM 2.6 mg/dL (1.8-2.4); PHOSPHORUS 2.9 mg/dL (2.5-4.9); POTASSIUM 4.6 mmol/L (3.5-5.1)
[2018-06-01 21:07] LABS: CREATININE 1.3 mg/dL (0.7-1.3)
[2018-06-02] VITALS (67 sets, daily range): BP systolic 81–140; BP diastolic 35–124
[2018-06-02 05:45] LABS: ALBUMIN 0.9 g/dL (3.4-5.0); CREATININE 1.1 mg/dL (0.7-1.3); MAGNESIUM 1.7 mg/dL (1.8-2.4); PHOSPHORUS 3.3 mg/dL (2.5-4.9)
[2018-06-02 05:46] LABS: ALBUMIN 0.9 g/dL (3.4-5.0); DIRECT BILIRUBIN 0.7 mg/dL (<0.1-0.3); POTASSIUM 4.3 mmol/L (3.5-5.1); TOTAL PROTEIN 4.7 g/dL (6.4-8.2)
[2018-06-02 05:48] LABS: CALCIUM 5.8 mg/dL (8.5-10.1)
[2018-06-02 05:52] LABS: HEMATOCRIT 20.8 % (42.0-52.0); MCH 30.9 pg (26.0-34.0); MCHC 33.8 g/dL (28.0-37.0); MCV 91.4 fL (80.0-100.0); PLATELET COUNT 158 thou/uL (150-400); RBC 2.28 mil/uL (4.50-6.00); RDW 25.9 % (10.5-14.5); WBC 22.2 thou/uL (4.0-11.0)
[2018-06-02 08:46] LABS: ABSOLUTE NEUTROPHILS 19.8 thou/uL (1.4-8.2); METAMYELOCYTES 3 %; PLATELET ESTIMATE NORMAL
[2018-06-02 08:47] LABS: ANISOCYTOSIS 2+; HYPOCHROMASIA 2+; MICROCYTES 2+
[2018-06-02 09:09] LABS: URINE BILIRUBIN 2+ (Negative); URINE BLOOD 2+ (Negative); URINE CLARITY CLOUDY; URINE COLOR BROWN; URINE GLUCOSE-RANDOM* TRACE (Negative); URINE KETONES NEGATIVE (Negative); URINE LEUKOCYTES-REFLEX NEGATIVE (Negative); URINE PROTEIN (DIPSTICK) 2+ (Negative)
[2018-06-02 09:11] LABS: URINE NITRITE-REFLEX POSITIVE (Negative)
[2018-06-02 09:12] LABS: ICTOTEST (BILI CONFIRMATORY) Positive (Negative)
[2018-06-02 09:21] LABS: CASTS None Seen /LPF (None Seen); SQUAMOUS 0-3 Few /LPF (0-3); URINE RBC 3-10 Few /HPF (0-2); URINE WBC-REFLEX None Seen /HPF (0-5)
[2018-06-02 09:22] LABS: AMORPHOUS URATES Many /LPF (None Seen)
[2018-06-03] VITALS (87 sets, daily range): BP systolic 78–145; BP diastolic 33–63
[2018-06-03 05:57] LABS: HEMOGLOBIN 6.5 gm/dL (14.0-18.0)
[2018-06-03 05:59] LABS: ALBUMIN 1.2 g/dL (3.4-5.0); CREATININE 1.7 mg/dL (0.7-1.3); MAGNESIUM 2.6 mg/dL (1.8-2.4)
[2018-06-03 06:01] LABS: POTASSIUM 5.4 mmol/L (3.5-5.1)
[2018-06-03 06:02] LABS: MCHC 33.6 g/dL (28.0-37.0); MCV 92.2 fL (80.0-100.0); PLATELET COUNT 152 thou/uL (150-400); RBC 2.09 mil/uL (4.50-6.00); RDW 25.8 % (10.5-14.5); WBC 23.1 thou/uL (4.0-11.0)
[2018-06-03 06:12] LABS: HEMATOCRIT 19.3 % (42.0-52.0)
[2018-06-03 07:34] LABS: ABSOLUTE NEUTROPHILS 20.8 thou/uL (1.4-8.2); METAMYELOCYTES 2 %
[2018-06-03 07:36] LABS: ANISOCYTOSIS 1+; HYPOCHROMASIA 2+; LARGE PLATELETS OCCASIONAL; POIKILOCYTOSIS SLIGHT; TARGET CELLS OCCASIONAL
[2018-06-03 10:40] LABS: BE(vivo) 0.3 mmol/L (-2 to +3); PCO2 47.7 mmHg (35.0-45.0); PO2 68.6 mmHg (80.0-100.0); pH 7.354 (7.360-7.450); sO2 92.8 % (92.0-98.0)
[2018-06-03 16:07] LABS: CORTISOL 30 MIN 36.1 ug/dL (Not Estab.); CORTISOL 60 MIN 41.8 ug/dL (Not Estab.); CORTISOL BASELINE 21.8 ug/dL (())
[2018-06-04] VITALS (48 sets, daily range): BP systolic 71–130; BP diastolic 34–52
[2018-06-04 05:43] LABS: HEMATOCRIT 21.9 % (42.0-52.0); HEMOGLOBIN 7.1 gm/dL (14.0-18.0); MCHC 32.3 g/dL (28.0-37.0); MCV 93.2 fL (80.0-100.0); PLATELET COUNT 146 thou/uL (150-400); RBC 2.35 mil/uL (4.50-6.00); RDW 22.2 % (10.5-14.5); WBC 30.1 thou/uL (4.0-11.0)
[2018-06-04 06:03] LABS: ALBUMIN 1.2 g/dL (3.4-5.0); CALCIUM 7.7 mg/dL (8.5-10.1); CREATININE 1.1 mg/dL (0.7-1.3); MAGNESIUM 2.4 mg/dL (1.8-2.4); PHOSPHORUS 2.7 mg/dL (2.5-4.9)
[2018-06-04 06:05] LABS: POTASSIUM 4.4 mmol/L (3.5-5.1)
[2018-06-04 06:32] LABS: ABSOLUTE NEUTROPHILS 27.4 thou/uL (1.4-8.2); METAMYELOCYTES 1 %
[2018-06-04 06:33] LABS: ANISOCYTOSIS 3+; POLYCHROMASIA OCCASIONAL; SCHISTOCYTES FEW; TARGET CELLS 1+; TEARDROPS OCCASIONAL
[2018-06-04 06:34] LABS: PLATELET ESTIMATE DECREASED
[2018-06-04 14:34] LABS: HEMOGLOBIN 8.2 gm/dL (14.0-18.0)
[2018-06-05] VITALS (49 sets, daily range): BP systolic 84–129; BP diastolic 39–58
[2018-06-05 05:32] LABS: HEMATOCRIT 23.2 % (42.0-52.0); HEMOGLOBIN 7.7 gm/dL (14.0-18.0); MCH 30.4 pg (26.0-34.0); MCHC 33.1 g/dL (28.0-37.0); MCV 91.8 fL (80.0-100.0); PLATELET COUNT 173 thou/uL (150-400); RBC 2.52 mil/uL (4.50-6.00); RDW 19.6 % (10.5-14.5); WBC 17.9 thou/uL (4.0-11.0)
[2018-06-05 05:41] LABS: ALBUMIN 1.1 g/dL (3.4-5.0); CALCIUM 7.7 mg/dL (8.5-10.1); CREATININE 1.9 mg/dL (0.7-1.3); DIRECT BILIRUBIN 0.6 mg/dL (<0.1-0.3); PHOSPHORUS 2.3 mg/dL (2.5-4.9); POTASSIUM 4.6 mmol/L (3.5-5.1); TOTAL PROTEIN 5.5 g/dL (6.4-8.2)
[2018-06-05 06:06] LABS: ABSOLUTE NEUTROPHILS 14.1 thou/uL (1.4-8.2); METAMYELOCYTES 3 %; MYELOCYTES 1 %; NUCLEATED RBCS 1 /100WBC
[2018-06-05 06:07] LABS: LARGE PLATELETS RARE; PLATELET ESTIMATE NORMAL
[2018-06-05 06:08] LABS: ANISOCYTOSIS 2+; POLYCHROMASIA OCCASIONAL
[2018-06-05 10:33] LABS: URINE CREATININE-RANDOM* 37.2 mg/dL
[2018-06-06] VITALS (73 sets, daily range): BP systolic 77–137; BP diastolic 23–59
[2018-06-06 04:59] LABS: CALCIUM 7.9 mg/dL (8.5-10.1); CREATININE 2.4 mg/dL (0.7-1.3); PHOSPHORUS 4.5 mg/dL (2.5-4.9); POTASSIUM 4.5 mmol/L (3.5-5.1)
[2018-06-06 05:04] LABS: HEMATOCRIT 21.2 % (42.0-52.0); HEMOGLOBIN 7.1 gm/dL (14.0-18.0); MCH 30.9 pg (26.0-34.0); MCHC 33.4 g/dL (28.0-37.0); MCV 92.8 fL (80.0-100.0); PLATELET COUNT 158 thou/uL (150-400); RBC 2.29 mil/uL (4.50-6.00); RDW 20.5 % (10.5-14.5); WBC 17.3 thou/uL (4.0-11.0)
[2018-06-06 05:25] LABS: ANISOCYTOSIS 2+; METAMYELOCYTES 2 %; MYELOCYTES 3 %; POLYCHROMASIA 1+
[2018-06-06 05:26] LABS: LARGE PLATELETS OCCASIONAL
[2018-06-06 08:04] LABS: APTT 30.1 Seconds (24.5-32.8); PROTIME 10.4 Seconds (9.3-11.4)
[2018-06-07] VITALS (91 sets, daily range): BP systolic 80–142; BP diastolic 22–78
[2018-06-07 05:30] LABS: HEMOGLOBIN 7.3 gm/dL (14.0-18.0); MCH 31.1 pg (26.0-34.0); MCHC 33.2 g/dL (28.0-37.0); MCV 93.9 fL (80.0-100.0); PLATELET COUNT 175 thou/uL (150-400); RBC 2.34 mil/uL (4.50-6.00); RDW 20.7 % (10.5-14.5)
[2018-06-07 05:36] LABS: ALBUMIN 1.1 g/dL (3.4-5.0); CALCIUM 7.8 mg/dL (8.5-10.1); CREATININE 2.3 mg/dL (0.7-1.3); MAGNESIUM 2.4 mg/dL (1.8-2.4); PHOSPHORUS 4.6 mg/dL (2.5-4.9); POTASSIUM 4.8 mmol/L (3.5-5.1)
[2018-06-07 06:33] LABS: ABSOLUTE NEUTROPHILS 15.6 thou/uL (1.4-8.2)
[2018-06-07 06:34] LABS: ANISOCYTOSIS 2+; PLATELET ESTIMATE NORMAL; POLYCHROMASIA 1+
[2018-06-08] VITALS (63 sets, daily range): BP systolic 82–140; BP diastolic 36–65
[2018-06-08 05:30] LABS: HEMATOCRIT 21.1 % (42.0-52.0); HEMOGLOBIN 7.1 gm/dL (14.0-18.0); MCH 31.4 pg (26.0-34.0); MCHC 33.4 g/dL (28.0-37.0); PLATELET COUNT 163 thou/uL (150-400); RBC 2.25 mil/uL (4.50-6.00); WBC 20.6 thou/uL (4.0-11.0)
[2018-06-08 06:08] LABS: CALCIUM 7.8 mg/dL (8.5-10.1); CREATININE 1.5 mg/dL (0.7-1.3); POTASSIUM 4.5 mmol/L (3.5-5.1)
[2018-06-08 07:28] LABS: METAMYELOCYTES 4 %
[2018-06-08 07:29] LABS: ABSOLUTE NEUTROPHILS 17.7 thou/uL (1.4-8.2); ANISOCYTOSIS 2+; MYELOCYTES 1 %; POLYCHROMASIA SLIGHT
[2018-06-08 07:31] LABS: LARGE PLATELETS FEW
[2018-06-08 07:36] LABS: HYPOCHROMASIA 1+; MACROCYTES 1+; MICROCYTES 1+
[2018-06-09] VITALS (26 sets, daily range): BP systolic 90–133; BP diastolic 38–63
[2018-06-09 06:01] LABS: MCH 30.8 pg (26.0-34.0)
[2018-06-09 06:03] LABS: MCHC 32.4 g/dL (28.0-37.0); MCV 95.1 fL (80.0-100.0); PLATELET COUNT 231 thou/uL (150-400); RBC 2.03 mil/uL (4.50-6.00); RDW 23.4 % (10.5-14.5); WBC 19.9 thou/uL (4.0-11.0)
[2018-06-09 06:08] LABS: HEMATOCRIT 19.3 % (42.0-52.0); HEMOGLOBIN 6.3 gm/dL (14.0-18.0)
[2018-06-09 06:15] LABS: ALBUMIN 1.1 g/dL (3.4-5.0); CALCIUM 7.7 mg/dL (8.5-10.1); CREATININE 2.4 mg/dL (0.7-1.3); DIRECT BILIRUBIN 0.7 mg/dL (<0.1-0.3); PHOSPHORUS 3.7 mg/dL (2.5-4.9); POTASSIUM 4.3 mmol/L (3.5-5.1); TOTAL BILIRUBIN 0.9 mg/dL (<0.1-1.0); TOTAL PROTEIN 5.4 g/dL (6.4-8.2)
[2018-06-09 08:11] LABS: ABSOLUTE NEUTROPHILS 16.1 thou/uL (1.4-8.2); METAMYELOCYTES 2 %; MYELOCYTES 1 %
[2018-06-09 08:12] LABS: ANISOCYTOSIS 3+
[2018-06-09 08:13] LABS: MACROCYTES 1+; POLYCHROMASIA SLIGHT
[2018-06-09 08:15] LABS: LARGE PLATELETS OCCASIONAL
[2018-06-09 12:17] LABS: HEMATOCRIT 26.8 % (42.0-52.0)
[2018-06-09 12:20] LABS: HEMOGLOBIN 8.7 gm/dL (14.0-18.0)
[2018-06-10] VITALS (48 sets, daily range): BP systolic 81–155; BP diastolic 36–98
[2018-06-10 05:20] LABS: ALBUMIN 1.3 g/dL (3.4-5.0); CALCIUM 7.6 mg/dL (8.5-10.1); CREATININE 1.5 mg/dL (0.7-1.3); HEMATOCRIT 24.1 % (42.0-52.0); HEMOGLOBIN 7.9 gm/dL (14.0-18.0); MCH 30.8 pg (26.0-34.0); MCHC 32.9 g/dL (28.0-37.0); MCV 93.7 fL (80.0-100.0); PHOSPHORUS 3.8 mg/dL (2.5-4.9); PLATELET COUNT 213 thou/uL (150-400); POTASSIUM 4.8 mmol/L (3.5-5.1); RBC 2.57 mil/uL (4.50-6.00); WBC 27.2 thou/uL (4.0-11.0)
[2018-06-10 08:02] LABS: ABSOLUTE NEUTROPHILS 24.5 thou/uL (1.4-8.2); METAMYELOCYTES 2 %; MYELOCYTES 2 %; NUCLEATED RBCS 1 /100WBC; TOXIC GRANULATION 2+
[2018-06-10 08:04] LABS: ANISOCYTOSIS 2+; POIKILOCYTOSIS 1+; TARGET CELLS 1+
[2018-06-10 08:05] LABS: MACROCYTES SLIGHT; POLYCHROMASIA OCCASIONAL
[2018-06-10 08:06] LABS: PLATELET ESTIMATE NORMAL
[2018-06-11] VITALS (49 sets, daily range): BP systolic 59–214; BP diastolic 24–129
[2018-06-11 01:22] LABS: BE(vivo) -13.8 mmol/L (-2 to +3); HCO3 14.6 mmol/L (22.0-26.0); PCO2 44.8 mmHg (35.0-45.0); PO2 86.6 mmHg (80.0-100.0); sO2 93.4 % (92.0-98.0)
[2018-06-11 01:25] LABS: pH 7.131 (7.360-7.450)
[2018-06-11 01:31] LABS: RBC 2.87 mil/uL (4.50-6.00)
[2018-06-11 01:32] LABS: HEMOGLOBIN 8.7 gm/dL (14.0-18.0); MCH 30.3 pg (26.0-34.0); MCV 97.6 fL (80.0-100.0); RDW 23.7 % (10.5-14.5)
[2018-06-11 01:34] LABS: WBC 43.2 thou/uL (4.0-11.0)
[2018-06-11 03:08] LABS: BE(vivo) -10.9 mmol/L (-2 to +3); HCO3 16.1 mmol/L (22.0-26.0); PCO2 40.5 mmHg (35.0-45.0); PO2 76.9 mmHg (80.0-100.0); sO2 92.8 % (92.0-98.0)
[2018-06-11 03:09] LABS: pH 7.217 (7.360-7.450)
[2018-06-11 06:20] LABS: HEMATOCRIT 24.5 % (42.0-52.0); HEMOGLOBIN 7.6 gm/dL (14.0-18.0); MCH 30.4 pg (26.0-34.0); MCV 98.2 fL (80.0-100.0); PLATELET COUNT 240 thou/uL (150-400); RBC 2.49 mil/uL (4.50-6.00); WBC 35.2 thou/uL (4.0-11.0)
[2018-06-11 06:30] LABS: ALBUMIN 1.2 g/dL (3.4-5.0); CALCIUM 7.4 mg/dL (8.5-10.1); CREATININE 1.4 mg/dL (0.7-1.3); MAGNESIUM 2.7 mg/dL (1.8-2.4); PHOSPHORUS 5.2 mg/dL (2.5-4.9)
[2018-06-11 06:35] LABS: POTASSIUM 6.2 mmol/L (3.5-5.1)
[2018-06-11 06:55] LABS: ABSOLUTE NEUTROPHILS 29.6 thou/uL (1.4-8.2); METAMYELOCYTES 6 %; NUCLEATED RBCS 3 /100WBC
[2018-06-11 06:56] LABS: ANISOCYTOSIS 3+
[2018-06-11 06:58] LABS: LARGE PLATELETS OCCASIONAL; POLYCHROMASIA 1+
[2018-06-11 06:59] LABS: POIKILOCYTOSIS SLIGHT; SCHISTOCYTES OCCASIONAL
[2018-06-11 12:15] LABS: URINE BILIRUBIN 3+ (Negative); URINE BLOOD 1+ (Negative); URINE CLARITY CLOUDY; URINE COLOR BROWN; URINE GLUCOSE-RANDOM* TRACE (Negative); URINE KETONES 1+ (Negative); URINE PROTEIN (DIPSTICK) 2+ (Negative); URINE SPECIFIC GRAVITY 1.025 (1.005-1.035)
[2018-06-11 12:23] LABS: ICTOTEST (BILI CONFIRMATORY) Positive (Negative); URINE LEUKOCYTES-REFLEX 1+ (Negative); URINE NITRITE-REFLEX POSITIVE (Negative)
[2018-06-11 12:26] LABS: YEAST-REFLEX Present (None Seen)
[2018-06-11 12:27] LABS: CASTS None Seen /LPF (None Seen); CRYSTALS None Seen /LPF (None Seen); SQUAMOUS 0-3 Few /LPF (0-3); URINE RBC 0-2 Rare /HPF (0-2); URINE WBC-REFLEX 0-5 Rare /HPF (0-5)
== END 2018-06-11 14:02 | DRG 4 ==
LOC: ER 02:26 → ICU 05:20 → EROBS 05:20 → ICU 06:25 → 2N 05-18 15:27 → ICU 05-19 12:57
PROVIDERS: Family Medicine; Hospitalist; Internal Medicine; Internal Medicine Gastroenterology; Internal Medicine Hematology & Oncology; Internal Medicine Nephrology; Internal Medicine Pulmonary Disease; Nurse Practitioner; Nurse Practitioner Acute Care; Pediatrics; Radiology Vascular & Interventional Radiology; Specialist; Student in an Organized Health Care Education/Training Program; Surgery
PROC: 5A09357 Assistance with Respiratory Ventilation, Less than 24 Consecutive Hours, Continuous Positive Airway Pressure (ICD-10-PCS; principal; 2018-05-09)
PROC: 0B110F4 Bypass Trachea to Cutaneous with Tracheostomy Device, Open Approach (ICD-10-PCS; principal; 2018-05-09)
PROC: 0D9670Z Drainage of Stomach with Drainage Device, Via Natural or Artificial Opening (ICD-10-PCS; principal; 2018-05-09)
PROC: 5A1955Z Respiratory Ventilation, Greater than 96 Consecutive Hours (ICD-10-PCS; principal; 2018-05-09)
PROC: 5A09357 Assistance with Respiratory Ventilation, Less than 24 Consecutive Hours, Continuous Positive Airway Pressure (ICD-10-PCS; 2018-05-12)
PROC: 5A09357 Assistance with Respiratory Ventilation, Less than 24 Consecutive Hours, Continuous Positive Airway Pressure (ICD-10-PCS; 2018-05-13)
PROC: 5A09357 Assistance with Respiratory Ventilation, Less than 24 Consecutive Hours, Continuous Positive Airway Pressure (ICD-10-PCS; 2018-05-14)
PROC: 30233N1 Transfusion of Nonautologous Red Blood Cells into Peripheral Vein, Percutaneous Approach (ICD-10-PCS; 2018-05-14)
PROC: 0DB58ZX Excision of Esophagus, Via Natural or Artificial Opening Endoscopic, Diagnostic (ICD-10-PCS; 2018-05-14)
PROC: 0K9P3ZZ Drainage of Left Hip Muscle, Percutaneous Approach (ICD-10-PCS; 2018-05-20)
PROC: 0K9N3ZZ Drainage of Right Hip Muscle, Percutaneous Approach (ICD-10-PCS; 2018-05-20)
PROC: 5A1D90Z Performance of Urinary Filtration, Continuous, Greater than 18 hours Per Day (ICD-10-PCS; 2018-05-21)
PROC: 5A1D90Z Performance of Urinary Filtration, Continuous, Greater than 18 hours Per Day (ICD-10-PCS; 2018-05-22)
PROC: 02HV33Z Insertion of Infusion Device into Superior Vena Cava, Percutaneous Approach (ICD-10-PCS; 2018-05-23)
PROC: 02PYX3Z Removal of Infusion Device from Great Vessel, External Approach (ICD-10-PCS; 2018-05-23)
PROC: 5A1D90Z Performance of Urinary Filtration, Continuous, Greater than 18 hours Per Day (ICD-10-PCS; 2018-05-24)
PROC: 02PYX3Z Removal of Infusion Device from Great Vessel, External Approach (ICD-10-PCS; 2018-05-25)
PROC: 02HV33Z Insertion of Infusion Device into Superior Vena Cava, Percutaneous Approach (ICD-10-PCS; 2018-05-25)
PROC: 5A1D90Z Performance of Urinary Filtration, Continuous, Greater than 18 hours Per Day (ICD-10-PCS; 2018-05-28)
PROC: 5A1D90Z Performance of Urinary Filtration, Continuous, Greater than 18 hours Per Day (ICD-10-PCS; 2018-05-30)
PROC: 02HV33Z Insertion of Infusion Device into Superior Vena Cava, Percutaneous Approach (ICD-10-PCS; 2018-05-30)
PROC: 02PYX3Z Removal of Infusion Device from Great Vessel, External Approach (ICD-10-PCS; 2018-05-30)
PROC: 5A1D90Z Performance of Urinary Filtration, Continuous, Greater than 18 hours Per Day (ICD-10-PCS; 2018-06-06)
PROC: B244YZZ Ultrasonography of Right Heart using Other Contrast (ICD-10-PCS; 2018-06-06)
PROC: 02H633Z Insertion of Infusion Device into Right Atrium, Percutaneous Approach (ICD-10-PCS; 2018-06-06)
PROC: 0JH63XZ Insertion of Tunneled Vascular Access Device into Chest Subcutaneous Tissue and Fascia, Percutaneous Approach (ICD-10-PCS; 2018-06-06)
PROC: 0JH63XZ Insertion of Tunneled Vascular Access Device into Chest Subcutaneous Tissue and Fascia, Percutaneous Approach (ICD-10-PCS; 2018-06-08)
PROC: 02HV33Z Insertion of Infusion Device into Superior Vena Cava, Percutaneous Approach (ICD-10-PCS; 2018-06-08)
PROC: B5181ZA Fluoroscopy of Superior Vena Cava using Low Osmolar Contrast, Guidance (ICD-10-PCS; 2018-06-08)
PROC: B548ZZA Ultrasonography of Superior Vena Cava, Guidance (ICD-10-PCS; 2018-06-08)
DX: A41.9 Sepsis, unspecified organism (principal); J96.01 Acute respiratory failure with hypoxia; I26.99 Other pulmonary embolism without acute cor pulmonale; R65.21 Severe sepsis with septic shock; J18.9 Pneumonia, unspecified organism; K66.1 Hemoperitoneum; E43 Unspecified severe protein-calorie malnutrition; K68.12 Psoas muscle abscess; I21.4 Non-ST elevation (NSTEMI) myocardial infarction; N17.0 Acute kidney failure with tubular necrosis; K63.1 Perforation of intestine (nontraumatic); J96.02 Acute respiratory failure with hypercapnia; T82.41XA Breakdown (mechanical) of vascular dialysis catheter, initial encounter; K56.609 Unspecified intestinal obstruction, unspecified as to partial versus complete obstruction; K92.2 Gastrointestinal hemorrhage, unspecified; I47.2 Ventricular tachycardia; E87.0 Hyperosmolality and hypernatremia; D62 Acute posthemorrhagic anemia; K56.7 Ileus, unspecified; C15.9 Malignant neoplasm of esophagus, unspecified; D68.59 Other primary thrombophilia; N39.0 Urinary tract infection, site not specified; J44.0 Chronic obstructive pulmonary disease with (acute) lower respiratory infection; E03.9 Hypothyroidism, unspecified; R33.9 Retention of urine, unspecified; N18.9 Chronic kidney disease, unspecified; E78.5 Hyperlipidemia, unspecified; I25.10 Atherosclerotic heart disease of native coronary artery without angina pectoris; K22.2 Esophageal obstruction; F12.90 Cannabis use, unspecified, uncomplicated; T40.605A Adverse effect of unspecified narcotics, initial encounter; K59.00 Constipation, unspecified; E11.51 Type 2 diabetes mellitus with diabetic peripheral angiopathy without gangrene; M48.061 Spinal stenosis, lumbar region without neurogenic claudication; M54.16 Radiculopathy, lumbar region; D72.829 Elevated white blood cell count, unspecified; I12.9 Hypertensive chronic kidney disease with stage 1 through stage 4 chronic kidney disease, or unspecified chronic kidney disease; E87.6 Hypokalemia; E11.22 Type 2 diabetes mellitus with diabetic chronic kidney disease; R13.10 Dysphagia, unspecified; D50.9 Iron deficiency anemia, unspecified; R57.8 Other shock; I95.9 Hypotension, unspecified; D69.6 Thrombocytopenia, unspecified; E83.39 Other disorders of phosphorus metabolism; E83.42 Hypomagnesemia; R57.0 Cardiogenic shock; E83.51 Hypocalcemia; Z66 Do not resuscitate; E16.2 Hypoglycemia, unspecified; Z79.01 Long term (current) use of anticoagulants; Z87.891 Personal history of nicotine dependence; Z68.24 Body mass index [BMI] 24.0-24.9, adult; Y84.1 Kidney dialysis as the cause of abnormal reaction of the patient, or of later complication, without mention of misadventure at the time of the procedure; Y92.89 Other specified places as the place of occurrence of the external cause
CPT/HCPCS: 10078; 10081; 32110; 50101; 50386; 50403; 50517; 56525; 56639; 62110; 62900; 65020